=== PATIENT | male | born 1945 | race Caucasian/White ===

== ENCOUNTER 2023-09-06 19:20 | Inpatient (IN) | payer OTHER, SELFPAY ==
[2023-09-06] VITALS (11 sets, daily range): BP systolic 87–139; BP diastolic 46–80; BMI 19.3; BMI 18.5
[2023-09-06 15:00] LABS: Urine Albumin 2+ (Neg - Trace); Urine Bilirubin Negative (Negative); Urine Character Slightly Cloudy (Clear); Urine Glucose Negative (Negative); Urine Ketone Negative (Negative); Urine Leukocyte 2+ (Negative); Urine Nitrite Negative (Negative); Urine Occult Blood 4+ (Negative); Urine Specific Gravity 1.025 (<1.030); Urine Urobilinogen Negative (Neg - 1+)
[2023-09-06 15:01] LABS: Urine Color Yellow
[2023-09-06 15:03] LABS: % Basophils 0.3 % (0-2); % Eosinophils 0.2 % (0-6); % Immature Granulocytes 0.6 % (0-0.5); % Lymphocytes 2.6 % (20.5-51.1); % Monocytes 6.6 % (1.7-9.3); % Neutrophils 89.7 % (42.2-75.2); Absolute Basophils 0.1 10^3/uL (0-0.2); Absolute Immature Granulocytes 0.2 10^3/uL (0-0.05); Absolute Lymphocytes 0.7 10^3/uL (1.2-3.4); Absolute Monocytes 1.6 10^3/uL (0.1-0.6); Absolute Neutrophils 22.2 10^3/uL (1.4-6.5); Hematocrit 31.6 % (39.0-52.0); Hemoglobin 10.3 g/dL (13.0-18.0); Mean Corp Hgb Conc. 32.6 g/dL (33.0-37.0); Mean Corpuscular Hgb 22.8 pg (27.0-31.0); Mean Corpuscular Volume 70.1 fL (80.0-94.0); Mean Platelet Volume 10.1 fL (7.4-10.4); Nucleated Red Blood Cells % 0 % (-); Platelet Count 270 10^3/uL (130-400); Red Blood Cell Count 4.51 10^6/uL (4.70-6.10); Red Cell Dist. Width 18.3 % (11.5-14.5); White Blood Cell Count 24.7 10^3/uL (4.8-10.8)
[2023-09-06 15:13] LABS: Lactic Acid 1.5 mmol/L (0.7-2.0)
[2023-09-06 15:15] LABS: ALT (SGPT) 12 U/L (0-50); AST (SGOT) 19 U/L (17-59); Albumin 3.8 g/dl (3.5-5.0); Alkaline Phosphatase 83 U/L (38-126); Blood Urea Nitrogen 24 mg/dl (9-20); Calcium 8.7 mg/dl (8.4-10.2); Carbon Dioxide 29 mmol/L (22-30); Chloride 98 mmol/L (98-107); Estimated Creatinine Clearance 37 ml/min; Glucose 95 mg/dl (70-99); Potassium 4.4 mmol/L (3.5-5.1); Sodium 137 mmol/L (135-145); Total Bilirubin 0.8 mg/dl (0.2-1.3); eGFR 55.53
[2023-09-06 15:21] LABS: Urine White Cell >100 /HPF (0-5)
[2023-09-06 15:22] LABS: Urine Bacteria Moderate (Negative)
[2023-09-06] MEDS: TYLENOL 1000 MG PO (15:29)
--- NOTE | 2023-09-06 15:29 | ED.GENMED ---
History of Present Illness
General
Chief Complaint: Breathing Problem
Source: patient
Exam Limitations: none
Time Seen by Provider: 09/06/23 15:21
History of Present Illness
History of Present Illness:
See MDM
Past History
Past History
ED Past Medical History: Arrthythmia (Atrial fibrillation), CAD, CHF, COPD and ID
ED Past Surgical History: Cardiac (ICD implantation), Orthopedic (Cyst on left hand) and Other (Hernia repair)
Patient has exhibited threatening behavior?: No
PSI?: No
Social History
Tobacco: Former smoker
Alcohol: Occasional
Drug: None
Personal:
Living: with family
Employment: Retired
Family History
Family History: Other (Noncontributory )
Phy Exam
Physical Exam
Physical Exam:
See MDM
Scores
Heart Failure Risk
Heart Failure Risk Score: Not Applicable
Course
Orders/Labs/Results
Orders:
Orders
09/06/23 14:36
Electrocardiogram (*1) Urgent
Reason for Study: Other
Other Reason for Exam: Possible Sepsis
Cardiac Monitoring- Treatment ONCE
EKG- Treatment ONCE
IV Insert/Care/Rem.- Treatment PRN
O2 Therapy [RESP] Urgent
Titrate/Wean O2 to maintain O2 sat greater than (%): 93
Special Instructions: TO MAINTAIN CONTINUOUS O2 SATS > OR = 93%
Pulse Ox/cont/shift [RESP] Urgent
Quantity: 1
Special Instructions: CONTINUOUS
09/06/23 14:45
Complete Blood Count/With Diff Urgent
Comprehensive Metabolic Panel Urgent
Lactic Acid Q4H
Comment: ON ICE, CANCEL 2ND ORDER IF FIRST LACTIC ACID LEVEL <2
Urinalysis Reflex To Culture Urgent
Date Specimen was Collected: 09/06/23
Time Specimen was Collected: 14:36
Urine Microscopic Reflex Cult Urgent
Blood Culture Q30M
JAMARI Source: Blood/Venous
Specimen Description:
Comment: FROM 2 SEPARATE SITES
Urine Culture Urgent
JAMARI Source: U
Specimen Description:
Date Specimen was Collected: 09/06/23
Time Specimen was Collected: 14:36
09/06/23 14:50
Blood Culture Q30M
JAMARI Source: Blood/Venous
Specimen Description:
Comment: FROM 2 SEPARATE SITES
09/06/23 15:26
Acetaminophen [Tylenol] 1,000 mg PO NOW STA
09/06/23 15:28
CR Chest - 2 Views Urgent
Comment:
Reason For Exam: ssob, cough, fever
09/06/23 15:31
0.9% Sodium Chloride 1000 ml [Nss] 1,000 ml IV BOLUS
09/06/23 17:40
Piperacillin/Tazo 3.375 Gram [Zosyn] 3.375 gram in 50 ml IV NOW
Vancomycin [Vancocin] 1,250 mg 0.9% Sodium Chloride 250 ml [Nss] 250 ml IV NOW
Abnormal Lab Results
09/06/23
14:45
WBC 24.7 H 10^3/uL
(4.8-10.8)
RBC 4.51 L 10^6/uL
(4.70-6.10)
Hgb 10.3 L g/dL
(13.0-18.0)
Hct 31.6 L %
(39.0-52.0)
MCV 70.1 L fL
(80.0-94.0)
MCH 22.8 L pg
(27.0-31.0)
MCHC 32.6 L g/dL
(33.0-37.0)
RDW 18.3 H %
(11.5-14.5)
Abs Immat Gran (auto) 0.2 H 10^3/uL
(0-0.05)
Absolute Neuts (auto) 22.2 H 10^3/uL
(1.4-6.5)
Absolute Lymphs (auto) 0.7 L 10^3/uL
(1.2-3.4)
Absolute Monos (auto) 1.6 H 10^3/uL
(0.1-0.6)
Immature Gran % 0.6 H %
(0-0.5)
Neutrophils % 89.7 H %
(42.2-75.2)
Lymphocytes % 2.6 L %
(20.5-51.1)
BUN 24 H mg/dl
(9-20)
Ur Occult Blood Reflex 4+ A
(Negative)
Leukocyte Esterase Rfl 2+ A
(Negative)
Urine RBC 3-6 A /HPF
(0-2)
Urine WBC (Reflex) >100 A /HPF
(0-5)
Urine Bacteria (Reflex) Moderate A
(Negative)
Urine Albumin (Reflex) 2+ A
(Neg - Trace)
09/06/23 14:45
09/06/23 14:45
Vital Signs
Initial and Last Documented VS:
Initial Vital Signs
Temp Pulse Resp BP Pulse Ox
100.2 F 92 18 114/46 98
09/06/23 14:42 09/06/23 14:42 09/06/23 14:42 09/06/23 14:42 09/06/23 14:42
Last Documented Vital Signs
Temp Pulse Resp BP Pulse Ox
100.2 F 87 29 97/55 96
09/06/23 14:42 09/06/23 17:15 09/06/23 17:15 09/06/23 17:04 09/06/23 17:15
MDM/Problems Addressed
Differential Diagnosis Includes:
HPI and MDM Narrative:
78-year-old male presenting with shortness of breath and cough. Patient found to have low-grade fevers. Is not certain how long the symptoms have been going on. Patient is confused when it started. EMS stating that he was hypoxic and required
supplemental oxygen. EMS stating that he was recently diagnosed with aspiration pneumonia. Patient unsure if he has been taking antibiotics or not
On exam, pulse ox ranging from 90-94 on room air. Patient complains of if he cannot sputum production since this morning. Patient is febrile. Will give Tylenol and obtain chest x-ray. Blood work is returning showing significant leukocytosis but
lactic acid within normal limits
Physical exam
General: Well appearing and non-toxic
HEENT: protecting airway. Mildly dry mucous membranes
Neck: supple
CV: No evidence of cyanosis
Resp: No accessory muscle use. Rhonchorous breath sounds
Abd: Non-distended
Extremities: No deformities. No leg edema
Neuro: alert
Psych: Normal affect
Skin: Warm
Problems Addressed including Acute and Chronic Conditions affecting care:
1. Shortness of breath, cough, fever
Acuity: acute
Prognosis: stable
Details: Likely in setting of pneumonia. Patient has significant leukocytosis. Chest x-ray pending
2. Dehydration
Acuity: acute
Prognosis: stable
Details: Will start IV fluids
Updates
3:52 [employer] stating that defibrillator is at End of Service
Chest x-ray concerning for perihilar pneumonia.
Differential Diagnosis (but not limited to): Pneumonia, aspiration, pneumonitis, UTI
Testing considered: COVID testing
Drug therapy (if applicable): OTC meds, please see d/c instruction regarding Rx drugs
Amount and/or Complexity of Data Reviewed
Clinical info obtained from: Patient
External data reviewed: N/A
Labs I independently reviewed (but not limited to): Leukocytosis
Radiology: X-ray independently reviewed: Chest x-ray concerning for perihilar pneumonia
Pulse Ox: not hypoxic
EKG independently reviewed: N/A
Insurance Checker: Sinus rhythm
Critical Care: N/A
Risk of Complication:
Social Determinants of health: Good social support
Discussed with other providers: Hospitalist
Escalation of Care includes Admit/Obs: Given leukocytosis, fever, pneumonia and UTI, will admit. Patient will have to have his defibrillator 'end of service' figured out as well
Occasional wrong word or 'sound a like' substitutions may have occurred due to the inherent limitations of voice recognition software. Read the chart carefully and recognize, using context, where substitutions have occurred.
*Critical Care Note
Total Time (30-74mins, 75-104mins- exclusive of procedures): Not Applicable
ED Attending Note
-
Portions of this chart may have been created with voice recognition software.� Occasional wrong word or��sound alike� substitutions may have occurred due to the inherent limitations of voice recognition software.
Discharge Plan
Departure
Patient Disposition: Admit
Date of Disposition: 09/06/23
Time of Disposition: 17:48
Admit to: Telemetry
Presentation/result/management discussed w/ accepting MD/DO: Hospitalist
Discharge Problem:
Acute UTI, PNA (pneumonia)
Prescriptions:
No Action
pravastatin 80 MG tablet
80 mg PO QPM
lisinopril 5 MG tablet
5 mg PO DAILY
furosemide 40 mg Tablet
20 mg PO DAILY
Rx Instructions:
20mg once daily
Trelegy Ellipta 100-62.5-25 mcg Blister With Device
1 inh INHALATION R DAILY
apixaban 5 mg Tablet
5 mg PO BID
carvedilol 6.25 mg tablet
6.25 mg PO BID
Visbiome 112.5 billion cell Capsule
1 cap PO BID
bisacodyl [Dulcolax (bisacodyl)] 10 mg Suppository
10 mg AR PRN PRN (Reason: constipation )
Rx Instructions:
if no BM in 8 hr. after milk of mag
Fleet Enema suppository
See Rx Instructions .ROUTE .COMPLEX PRN (Reason: constipation )
Rx Instructions:
if no BM in 8 hr, after suppository
ipratropium-albuterol 0.5 mg-3 mg(2.5 mg base)/3 mL Solution For Nebulization
3 ml inhalation R QID PRN (Reason: shortness of breath) Qty: 90 0RF
dextromethorphan-guaifenesin 10-100 mg/5 mL Syrup
10 ml PO Q4HPRN PRN (Reason: Cough) Qty: 237 0RF
tramadol 50 mg Tablet
50 mg PO Q6HPRN PRN (Reason: moderate to severe pain) Qty: 14 0RF
tamsulosin 0.4 mg Capsule
0.4 mg PO DAILY Qty: 30 0RF
diazepam [Valium] 5 mg tablet
5 mg PO DAILY PRN (Reason: anxiety) Qty: 5 0RF
pantoprazole 40 mg Tablet,Delayed Release (Dr/Ec)
40 mg PO DAILY Qty: 30 0RF
lidocaine 4 % Adhesive Patch,Medicated
2 patch topical DAILY Qty: 60 0RF
Rx Instructions:
apply to low back
acetaminophen [Pain Relief ES (acetaminophen)] 500 mg Tablet
1,000 mg PO TID Qty: 100 0RF
gabapentin 100 mg Capsule
200 mg PO TID Qty: 90 0RF
albuterol sulfate 90 mcg/actuation HFA aerosol inhaler
2 puff INHALATION R Q4 PRN (Reason: breathing issues) Qty: 0 0RF
Rx Instructions:
2.5mg/3ml 0.083% three times a day
Referrals:
Grayson Lyons MD [Family Provider] -
Interventions
Interventions:
*Risk Screen - Suicide Last Done: 09/06/23 15:02
*General Assessment Last Done: 09/06/23 14:41
*Neglect/Abuse Screening Last Done: 09/06/23 15:02
ED- Fall Risk Assessment Last Done: 09/06/23 14:41
*ED COVID-19 Vaccine History Last Done: 09/06/23 14:41
ED- Cardiac Assessment Last Done: 09/06/23 15:02
ED- Pulmonary Assessment Last Done: 09/06/23 15:02
Discharge Date and Time
Print Language: NEPALESE
[2023-09-06] MEDS: NSS 1000 IV ×2 (15:34→20:26)
[2023-09-06] MEDS: ZOSYN 50 IV (18:12)
--- NOTE | 2023-09-06 18:24 | HPS.HSE ---
Family Physician
-
Family Physician: Grayson Lyons
Chief Complaint
-
Vomiting
History of Present Illness
Patient is an 78-year-old male past medical history of COPD, CHF and permanent atrial fibrillation s/p pacemaker who presents with projectile vomiting. Additional history is obtained from patient's daughter at the bedside as well as patient's
via phone. Patient has been complaining of increased burning sensation around his Hurd catheter for the last week. He notes catheter was changed on August 03, and then again this morning prior to onset of symptoms. Patient developed significant
'projectile vomiting' today. EMS was called due to severity of symptoms, and upon arrival patient's blood pressure and oxygen level were noted to be low. During my evaluation blood pressure has improved following IVFs, and pulse ox is 95% on room
air.
Medical History
Past Medical History
Past Medical History: Reports Other
Additional Past Medical History:
Complete Heart Block
Chronic HFrEF
Coronary Artery Disease s/p Stent
Ischemic Cardiomyopathy s/p AICD
Essential Hypertension
Hyperlipidemia
COPD
Past Surgical History: Reports Other
Additional Past Surgical History:
Hernia Repair
Social History
Tobacco: Former Smoker (Quit at least years 10 ago)
Alcohol: Occasional
Family History
Family History: Not pertinent
Allergies / Home Medications
Allergies reflects when Allergies were last updated in [employer].
Home Medications with original date entered in [employer]
Allergy/Medication List:
Allergies
Allergy/AdvReac Type Severity Reaction Status Date / Time
No Known Drug Allergies Allergy Unknown Verified 11/21/21 09:37
Home Medications
furosemide 40 mg tablet 20 mg PO DAILY Fluid retention/Swelling 02/06/22
ipratropium 0.5 mg-albuterol 3 mg (2.5 mg base)/3 mL nebulization soln 3 ml inhalation R QID PRN shortness of breath #90 mL 07/17/22
tamsulosin 0.4 mg capsule 0.4 mg PO DAILY urinary retention #30 caps 07/18/22
tramadol 50 mg tablet 50 mg PO Q6HPRN PRN moderate to severe pain #14 tabs 07/18/22
acetaminophen 500 mg tablet (Pain Relief Extra Strength (acetaminophen)) 500 mg PO Q8HPRN PRN Pain 09/06/23
benzonatate 100 mg capsule 100 mg PO BID 09/06/23
docusate sodium 100 mg capsule (Colace) 100 mg PO DAILY 09/06/23
melatonin 5 mg tablet 5 mg PO HS PRN sleep 09/06/23
oxybutynin chloride 10 mg tablet,extended release 24 hr 10 mg PO DAILY 09/06/23
sennosides 8.6 mg tablet (senna) 17.2 mg PO BID 09/06/23
Review of Systems
-
A 12 point ROS was completed and negative except as noted: Yes
Constitutional: Reports Fever
Respiratory: Denies Cough or Trouble Breathing
Cardiac: Denies Chest Pain or Syncope
Abdomen/GI: Reports Vomiting; Denies Abdominal Pain
Physical Exam
Vital Signs
Vital Signs
Temp Pulse Resp BP Pulse Ox
100.2 F 87 29 97/55 96
09/06/23 14:42 09/06/23 17:15 09/06/23 17:15 09/06/23 17:04 09/06/23 17:15
Physical Exam
General: Comfortable and Conversant
HEENT: Anicteric, Moist mucous membranes and Other (Poor dentition)
Respiratory: Clear and Non Labored Respirations
Cardiac: S1/S2 and Regular Rhythm
GI: Soft, Non Tender, Distended (Slightly) and Other (Slightly hyperactive bowel sounds)
Genito-urinary: Hurd
Musculoskeletal: No Clubbing, No Cyanosis and No Edema
Skin: Warm and Dry
Neuro: Awake, Alert and Nonfocal/grossly intact
Psych: Calm
Laboratory Results
-
09/06/23 14:45
09/06/23 14:45
Laboratory Results
Lactic Acid Cancelled 09/06/23 18:45
Total Bilirubin 0.8 mg/dl (0.2-1.3) 09/06/23 14:45
AST 19 U/L (17-59) 09/06/23 14:45
ALT 12 U/L (0-50) 09/06/23 14:45
Alkaline Phosphatase 83 U/L (38-126) 09/06/23 14:45
Impression/Plan
-
Sepsis secondary to Catheter Associated Urinary Tract Infection
-Continue empiric ceftriaxone
-Await urine and blood cultures
Projectile Vomiting
-Check Abdomen X-Ray
Ischemic Cardiomyopathy/Complete Heart Block s/p BiV ICD/Pacemaker
-Interrogation revealed device to be at 'End of Service'
-Consult Cardiology to discuss possible generator change
Chronic HFpEF
-Hold Lasix as BP was low upon presentation
Urinary Retention with Chronic Hurd
-Hurd exchanged on September 05
-Continue tamsulosin and oxybutynin
COPD, no acute exacerbation
-Continue Duoneb PRN
DVT proph: SCDs
Code Status: DNR
[2023-09-06 18:41] LABS: COVID-19 Antigen Negative (Negative)
--- NOTE | 2023-09-06 19:47 | W.PN.UPDATE ---
Update Note
Progress Note Update
Patient seen/examined and discussed with CRISTINA Cowart, and I agree with her note.
Gen-AAOx3, NAD
HEENT-NC, AT, anicteric, clear MM
Neck-supple
CV-reg, no M
Lungs-clear B/L
Abd-distended, tympanitic, not tender
Ext-no edema
Ileus vs. SBO - keep NPO, IVF, antiememtics. Admit to tele. Consult general surgery. Abdominal x-ray noted. Projective vomiting this am prior to admission as per family.
Sepsis - differential includes UTI vs. other. Check blood and urine cultures, IV ceftriaxone for now. IVFs. This would be CAUTI if UTI ruled in.
Chronic urinary retention/chronic roldan catheter - his catheter was last changed this am according to family.
BiV-ICD - interrogated by ED, battery life depleted. Ask Cardiology to comment on device change.
Chronic HFpEF - stable.
COPD without exacerbation
Essential HTN - currently hypotensive, IVF as above.
Hyperlipidemia
Chronic anemia - microcytic. Will need follow up with PCP. Unclear etiology.
Functional paraparesis - bedbound.
DNR
Updated daughter at bedside.
[2023-09-06] MEDS: DITROPAN 5 MG PO (22:22)
[2023-09-06] MEDS: MELATONIN 5 MG PO (22:22)
[2023-09-06] MEDS: TYLENOL 650 MG PO (22:22)
[2023-09-06] MEDS: DUONEB 3 ML INH (22:34)
[2023-09-06] MEDS: VANCOCIN 275 MG IV (22:52)
[2023-09-07 00:44] VITALS: BMI 18.5
[2023-09-07] MEDS: ROCEPHIN 1000 MG IV (01:01)
[2023-09-07] MEDS: STERILE WATER FOR INJECTION 10 ML IV (01:01)
[2023-09-07 03:05] VITALS: BP 109/59
[2023-09-07 06:00] VITALS: BMI 18.8
[2023-09-07 07:15] VITALS: BP 113/75
[2023-09-07] MEDS: DITROPAN 5 MG PO ×2 (07:33→20:43)
[2023-09-07] MEDS: FLOMAX 0.400000000000000022 MG PO (07:33)
[2023-09-07 08:23] LABS: Hematocrit 27.9 % (39.0-52.0); Hemoglobin 8.9 g/dL (13.0-18.0); Mean Corp Hgb Conc. 31.9 g/dL (33.0-37.0); Mean Corpuscular Hgb 22.7 pg (27.0-31.0); Mean Corpuscular Volume 71.2 fL (80.0-94.0); Mean Platelet Volume 10.5 fL (7.4-10.4); Platelet Count 239 10^3/uL (130-400); Red Blood Cell Count 3.92 10^6/uL (4.70-6.10); Red Cell Dist. Width 18.1 % (11.5-14.5); White Blood Cell Count 16.1 10^3/uL (4.8-10.8)
[2023-09-07 08:51] LABS: Blood Urea Nitrogen 20 mg/dl (9-20); Calcium 8.1 mg/dl (8.4-10.2); Carbon Dioxide 25 mmol/L (22-30); Chloride 103 mmol/L (98-107); Estimated Creatinine Clearance 39 ml/min; Glucose 82 mg/dl (70-99); Potassium 4.1 mmol/L (3.5-5.1); Sodium 138 mmol/L (135-145); eGFR > 60.00
--- NOTE | 2023-09-07 09:20 | W.PN.HOSP.TC ---
Today's Communication/Plan
-
N.p.o., IV fluids
General surgery consult
Cardiology consult
Continue antibiotics
Await cultures
Assessment / Plan
Assessment / Plan
Gen-AAOx3, NAD
HEENT-NC, AT, anicteric, clear oral mm
Neck-supple
CV-reg, no M, +S1/S2
Lungs-clear B/L
Abd-soft, nontender, mildly distended and tympanitic
Ext-no edema
Musculoskeletal-no cyanosis, clubbing
Skin-warm and dry
Neuro-grossly non-focal
Psych-calm, cooperative
Ileus vs. SBO - keep NPO, IVF, antiememtics. Consult general surgery. Abdominal x-ray noted. No further nausea or vomiting in the hospital.
Sepsis - differential includes UTI vs. other. Check blood and urine cultures, IV ceftriaxone for now. IVFs. This would be CAUTI if UTI ruled in. WBCs trending down, afebrile overnight.
Chronic urinary retention/chronic roldan catheter - his catheter was last changed morning of admission.
BiV-ICD - interrogated by ED, battery life depleted. Ask Cardiology to comment on device change.
Chronic HFpEF - stable.
COPD without exacerbation
Essential HTN -stable, hypotension resolved with IV fluids.
Hyperlipidemia
Chronic anemia - microcytic. Will need follow up with PCP. Unclear etiology.
Functional paraparesis - bedbound.
DNR
Anticipated Discharge: > 48 hours
Subjective/Interval History
-
Date of Service: September 07, 2023
Patient seen and examined. No new complaints.
Objective Data
-
Labs:
Laboratory Results
09/07/23
07:29
WBC 16.1 H
Hgb 8.9 L
Hct 27.9 L
Plt Count 239
Sodium 138
Potassium 4.1
Chloride 103
Carbon Dioxide 25
BUN 20
Creatinine 1.2
Glucose 82
Calcium 8.1 L
Vital Signs:
Vital Signs
Temp Pulse Resp BP Pulse Ox
98.6 F 96 20 113/75 99
09/07/23 07:15 09/07/23 07:15 09/07/23 07:15 09/07/23 07:15 09/07/23 07:15
I&O
09/06/23 09/07/23 09/08/23
06:59 06:59 06:59
Intake Total 1235 / 1235
Output Total 550 / 550
Balance 685 / 685
Review of Systems
-
History Source: Patient
All other systems: Reviewed and negative
--- NOTE | 2023-09-07 09:35 | PTCARENOTE ---
pt [place] states no pain. hearing aid in left ear. pt asking for breakfast. nc4l. breath sounds diminished at bases. roldan in place.
--- NOTE | 2023-09-07 10:42 | CON.GS ---
Medical History
-
Chief Complaint: Dysuria
History of Present Illness:
Patient is an 78 yo M with a PMH of HTN, HLD, CAD s/p PCI with stent, ischemic cardiomyopathy s/p AICD, CHF, COPD, and s/p LEFT open inguinal hernia repair with mesh. He has a chronic indwelling Hurd and has been admitted for issues with dysuria
as well as a concern for a UTI. During the course of his workup he endorses nausea and vomiting. Denies any significant abdominal pain. He has had no further episodes since admission to the hospital. He reports passing flatus, but no BM. Workup
includes an abdominal x-ray which demonstrates small bowel as well as a large bowel dilation with air. No evidence of free air. No CT scan performed.
Past Medical History
Past Medical History: Arrhythmias (Heart block), CAD, CHF, COPD, HTN and Hypercholesterolemia
Past Surgical History: Hernia Repair (Open LEFT inguinal)
Social History
Tobacco: Former Smoker
Alcohol: Occasional
Drug: None
Personal:
Living: With Family
Family History
Family History: Reviewed & Not Pertinent
Allergies / Home Medications
Allergy/AdvReac Type Severity Reaction Status Date / Time
No Known Drug Allergies Allergy Unknown Verified 11/21/21 09:37
�Medication �Instructions �Recorded �Confirmed �Type
furosemide 40 mg tablet 20 mg PO DAILY Fluid 02/06/22 09/06/23 History
retention/Swelling
ipratropium 0.5 mg-albuterol 3 mg 3 ml inhalation R QID PRN 07/17/22 09/06/23 Rx
(2.5 mg base)/3 mL nebulization shortness of breath #90 mL
soln
tamsulosin 0.4 mg capsule 0.4 mg PO DAILY urinary retention 07/18/22 09/06/23 Rx
#30 caps
tramadol 50 mg tablet 50 mg PO Q6HPRN PRN moderate to 07/18/22 09/06/23 Rx
severe pain #14 tabs
acetaminophen 500 mg tablet (Pain 500 mg PO Q8HPRN PRN Pain 09/06/23 09/06/23 History
Relief Extra Strength
(acetaminophen))
benzonatate 100 mg capsule 100 mg PO BID 09/06/23 09/06/23 History
docusate sodium 100 mg capsule 100 mg PO DAILY 09/06/23 09/06/23 History
(Colace)
melatonin 5 mg tablet 5 mg PO HS PRN sleep 09/06/23 09/06/23 History
oxybutynin chloride 10 mg 10 mg PO DAILY 09/06/23 09/06/23 History
tablet,extended release 24 hr
sennosides 8.6 mg tablet (senna) 17.2 mg PO BID 09/06/23 09/06/23 History
Review of Systems
-
A 10 point review of systems was completed, and was negative except as per HPI.
Physical Exam
Vital Signs
Temp Pulse Resp BP Pulse Ox
98.6 F 96 20 113/75 99
09/07/23 07:15 09/07/23 07:15 09/07/23 07:15 09/07/23 07:15 09/07/23 07:15
09/06/23 09/07/23 09/08/23
06:59 06:59 06:59
Actual Weight 55.934 kg
Body Mass Index (BMI) 18.8
Lab Results
09/07/23 07:29
09/07/23 07:29
WBC 16.1 10^3/uL (4.8-10.8) H 09/07/23 07:29
Hgb 8.9 g/dL (13.0-18.0) L 09/07/23 07:29
Hct 27.9 % (39.0-52.0) L 09/07/23 07:29
Plt Count 239 10^3/uL (130-400) 09/07/23 07:29
Abs Immat Gran (auto) 0.2 10^3/uL (0-0.05) H 09/06/23 14:45
Neutrophils % 89.7 % (42.2-75.2) H 09/06/23 14:45
Physical Exam
General: Well Developed, Well Nourished and No Apparent Distress
HEENT: Normocephalic
Respiratory: Non Labored Respirations and Other (Supplemental O2)
Cardiac: Regular Rhythm
GI: Soft, Non Tender, Distended (Mild tympany) and Other (Non-peritoneal)
Musculoskeletal: No Edema
Skin: Warm and Dry
Neuro: Nonfocal/Grossly Intact
Data Reviewed
-
Radiology: Image Personally Visualized and interpreted and Report Reviewed by me
Labs: Labs Reviewed by me
Assessment / Plan
-
Patient is a 78 yo M p/w ileus versus bowel obstruction (possibly large given dilation of colon as visualized on x-ray).
No plans or indication for urgent surgical intervention. Patient is clinically stable, afebrile, no evidence of free air on x-ray. Plan for CT abdomen pelvis with oral and IV contrast today for completion of workup. Diet and further
recommendations pending this imaging.
-- CT abdomen/Pelvis with PO and IV contrast
-- NPO, IVF, NGT for nausea, emesis, or inability to tolerate contrast
-- No plans for surgery at this time
[2023-09-07 11:10] VITALS: BP 104/87
[2023-09-07] MEDS: OMNIPAQUE 50 ML PO (11:13)
--- NOTE | 2023-09-07 11:19 | CON.CAR ---
Addendum entered and electronically signed by Taryn Nuñez MD 09/07/23 13:28:
I saw and examined the patient.
The PICU NURSE's note was reviewed and I agree with the note.
Comment: 6-year-old gentleman with a past medical history of heart failure with mildly reduced EF, BiV ICD, prior VT and shocks, chronic atrial fibrillation, presented for evaluation for vomiting. Was found to have an ileus versus SBO. In the ED
for unclear reasons device was interrogated. It is now at end-of-life. We are asked to comment on whether or not he should have a generator change. It turns out he had been on hospice last year for failure to thrive, pneumonia and hypotension
according to his . He outlived hospice and is now doing better. On exam, he does not have a lot of complaints. He is a poor historian. He appears cachectic but is alert and oriented. Regular rate and rhythm, lungs are clear to auscultation
bilaterally abdomen is tender with high-pitched bowel sounds. Device interrogation shows VT therapies are off, he is pacing 92% of the time from the ventricle. I discussed the indication for a new battery in a patient with heart failure. He
already outlived a hospice diagnosis. Currently, he would not be a candidate with an SBO and possible UTI. Additionally we would need to establish his mortality greater than 1 year. It seems to me, that this may be the case. I discussed frankly
with the that we could replace the battery to help ensure ongoing [employer]. Would not recommend activating his ICD lead as his wishes are to be DNR. She would like to discuss this with her family. I explained that this is not an acute issue. We
would be happy to revisit this issue after this hospitalization. Please let us know when he is nearing discharge so we can follow-up.
Original Note:
Consultation
Consultation Request
Date/Time Consultation Requested: 09/06/2023 20:00
Date/Time Consultation Performed: 09/07/2023 10:00
Requesting Provider: Bianca Cowart PA-C
Performing Provider: DEEP Gaspar for Dr. Nuñez
Reason for Consultation: Device at EOL
Medical History
-
Chief Complaint: Vomiting
History of Present Illness:
Mr. Ray is an 78-year-old male (formerly known to Dr. Mcmullen), with permanent atrial fibrillation (no longer on apixaban), CAD (PCI proximal LCx 2009), HTN, HLD, LBBB, Medtronic BiV ICD, ICM 45%, HFmrEF and NIDDM, who presents to the ER with
c/o vomiting. He was found to have an ileus versus bowel obstruction. His Medtronic device was interrogated by the ER and was found to be at end-of-life. Cardiology was consulted for device management.
The patient and his had a lengthy discussion with Dr. Mcmullen in August, after he received ICD therapy x 21. He was transitioned to hospice at that time. The patient and his report he is no longer on hospice.
Past Medical History
Past Medical History: Arrhythmias (permanent Afib), CAD (BMS to proximal circumflex stenosis 04/16/2009), CHF (HFmrEF), COPD, HTN, Hypercholesterolemia, NIDDM and Other (LBBB, CHB pacer dependent)
Past Surgical History: Cardiac (Medtronic BiV ICD)
Social History
Tobacco: Former Smoker
Alcohol: Occasional (1 drink a month)
Drug: None
Personal:
Living: With Family
Employment: Retired
Family History
Family History: Reviewed & Not Pertinent
Allergies / Home Medications
Allergy/AdvReac Type Severity Reaction Status Date / Time
No Known Drug Allergies Allergy Unknown Verified 11/21/21 09:37
�Medication �Instructions �Recorded �Confirmed �Type
furosemide 40 mg tablet 20 mg PO DAILY Fluid 02/06/22 09/06/23 History
retention/Swelling
ipratropium 0.5 mg-albuterol 3 mg 3 ml inhalation R QID PRN 07/17/22 09/06/23 Rx
(2.5 mg base)/3 mL nebulization shortness of breath #90 mL
soln
tamsulosin 0.4 mg capsule 0.4 mg PO DAILY urinary retention 07/18/22 09/06/23 Rx
#30 caps
tramadol 50 mg tablet 50 mg PO Q6HPRN PRN moderate to 07/18/22 09/06/23 Rx
severe pain #14 tabs
acetaminophen 500 mg tablet (Pain 500 mg PO Q8HPRN PRN Pain 09/06/23 09/06/23 History
Relief Extra Strength
(acetaminophen))
benzonatate 100 mg capsule 100 mg PO BID 09/06/23 09/06/23 History
docusate sodium 100 mg capsule 100 mg PO DAILY 09/06/23 09/06/23 History
(Colace)
melatonin 5 mg tablet 5 mg PO HS PRN sleep 09/06/23 09/06/23 History
oxybutynin chloride 10 mg 10 mg PO DAILY 09/06/23 09/06/23 History
tablet,extended release 24 hr
sennosides 8.6 mg tablet (senna) 17.2 mg PO BID 09/06/23 09/06/23 History
Review of Systems
-
History Source: Patient
All other systems: Negative unless noted
Constitutional: Fatigue
EENT: No Symptoms
Respiratory: No Symptoms
Cardiac: No Symptoms
Abdomen/GI: Nausea and Vomiting
: No Symptoms
Musculoskeletal: No Symptoms
Skin: No Symptoms
Neurological: No Symptoms
Endocrine: No Symptoms
Hematologic/Lymphatic: No Symptoms
Physical Exam
Vital Signs
Temp Pulse Resp BP Pulse Ox
98.6 F 96 20 113/75 99
09/07/23 07:15 09/07/23 07:15 09/07/23 07:15 09/07/23 07:15 09/07/23 07:15
Lab Results
09/07/23 07:29
09/07/23 07:29
Physical Exam
General: Well Developed, Well Nourished, No Apparent Distress and Comfortable
HEENT: Normocephalic, Anicteric and Moist Mucous Membranes
Respiratory: Clear and Non Labored Respirations
Cardiac: S1/S2 and Regular Rhythm
Breast: Deferred by me
GI: Soft, Non Tender and Non Distended
Rectal: Deferred by Provider
Genito-urinary: No Costovertebral Tender
Musculoskeletal: No Clubbing, No Cyanosis and No Edema
Skin: Warm and Dry
Neuro: AO x 3
Psych: Calm
Impression / Plan
-
BiV ICD at EOL
-Telephone encounter from 08/2022 reflects the patient and his denied antiarrhythmic therapy and further management and was transitioning to hospice care
-Patient is no longer on hospice but wishes to remain a DO NOT RESUSCITATE
-The patient and his are going back and forth whether or not they would want the patient to be shocked for arrhythmia, VT therapy is currently off
Vomiting with ileus versus bowel obstruction, CT abdomen pelvis pending, general surgery following
Ischemic cardiomyopathy
Heart failure with mildly reduced EF, LVEF 40-45% (2021)
-He does not appear volume overloaded, follow daily weights with IV fluid
-Medical therapy has been limited in the past due to blood pressure
-Trend daily weight, I/O
-Heart failure education
Permanent atrial fibrillation, not on oral anticoagulation, consider resuming apixaban, he had a GI bleed that was evaluated by GI in the past
CAD, stable without chest pain, he should be on aspirin if he wants to continue off apixaban
Chronic indwelling Hurd catheter, leukocytosis with abnormal UA
COPD, chronic without exacerbation
Hypertension
Anemia, chronic
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
Data Reviewed
-
EKG: Report Reviewed by me (Atrial sensed ventricular paced rhythm, rate 91)
Radiology: Report Reviewed by me (Abdomen: Findings suggesting nonspecific ileus. Early/developing small bowel obstruction not definitely excluded; CXR: No acute cardiopulmonary process.)
Medical Tests (Nuc Med, Echo etc): Report Reviewed by me (Prior echocardiogram as above)
Labs: Labs Reviewed by me
Old Records: Reviewed
[2023-09-07] MEDS: 0.45%NACL 1000 IV (13:15)
[2023-09-07 15:00] VITALS: BP 126/61
--- NOTE | 2023-09-07 16:23 | CM ---
Patient seen at bedside. Patient lives with his in a 2 story home with 2 steps to enter. patient has been using his walker or cane in home. Patient has used [facility] and been at [facility] several times. Patient requested CM call to patient
, unable to reach at this time. Patient for PT/OT assessment to clarify discharge needs. Patient has been graduated from hospice per chart review. CM will try to reach patient to review discharge planning needs.
Plan; home with VN vs SNF pending further discussion with physician
[2023-09-07 19:10] VITALS: BP 130/66
[2023-09-07 23:05] VITALS: BP 108/58
[2023-09-08] MEDS: STERILE WATER FOR INJECTION 10 ML IV ×2 (00:31→23:28)
[2023-09-08] MEDS: ROCEPHIN 1000 MG IV ×2 (00:31→23:27)
[2023-09-08 03:05] VITALS: BP 93/40
[2023-09-08 06:00] VITALS: BMI 18.6
[2023-09-08] MEDS: 0.45%NACL 1000 IV (06:07)
[2023-09-08 07:00] VITALS: BP 114/97
[2023-09-08 07:33] LABS: % Basophils 0.5 % (0-2); % Eosinophils 2.2 % (0-6); % Immature Granulocytes 0.2 % (0-0.5); % Lymphocytes 6.7 % (20.5-51.1); % Monocytes 10.9 % (1.7-9.3); % Neutrophils 79.5 % (42.2-75.2); Absolute Basophils 0.1 10^3/uL (0-0.2); Absolute Eosinophils 0.3 10^3/uL (0-0.7); Absolute Lymphocytes 0.8 10^3/uL (1.2-3.4); Absolute Monocytes 1.3 10^3/uL (0.1-0.6); Absolute Neutrophils 9.2 10^3/uL (1.4-6.5); Hematocrit 27.5 % (39.0-52.0); Hemoglobin 8.4 g/dL (13.0-18.0); Mean Corp Hgb Conc. 30.5 g/dL (33.0-37.0); Mean Corpuscular Hgb 22.3 pg (27.0-31.0); Mean Corpuscular Volume 72.9 fL (80.0-94.0); Mean Platelet Volume 10.4 fL (7.4-10.4); Nucleated Red Blood Cells % 0 % (-); Platelet Count 296 10^3/uL (130-400); Red Blood Cell Count 3.77 10^6/uL (4.70-6.10); White Blood Cell Count 11.5 10^3/uL (4.8-10.8)
[2023-09-08] MEDS: DITROPAN 5 MG PO ×2 (08:20→20:41)
[2023-09-08] MEDS: FLOMAX 0.400000000000000022 MG PO (08:20)
--- NOTE | 2023-09-08 10:36 | W.PN.HOSP.TC ---
Addendum entered and electronically signed by Kirit Linn DO 09/08/23 14:17:
Patient is underweight.
Original Note:
Today's Communication/Plan
-
Advance diet as tolerated
Assessment / Plan
Assessment / Plan
Gen-AAOx3, NAD
HEENT-NC, AT, anicteric, clear oral mm
Neck-supple
CV-reg, no M, +S1/S2
Lungs-clear B/L
Abd-soft, nontender, improving distention.
Ext-no edema
Musculoskeletal-no cyanosis, clubbing
Skin-warm and dry
Neuro-grossly non-focal
Psych-calm, cooperative
Ileus -resolving. No obstruction noted on CT scan. Suspect ileus related to sepsis, UTI. Start diet and advance. Discussed with surgical service.
Sepsis -due to catheter associated UTI. Urine culture shows Providencia, blood cultures negative. Currently on IV ceftriaxone. White blood cell count coming down.
Chronic urinary retention/chronic roldan catheter - his catheter was last changed morning of admission.
BiV-ICD - interrogated by ED, battery life depleted. Ask Cardiology to comment on device change.
Chronic HFpEF - stable.
COPD without exacerbation
Essential HTN -stable, hypotension resolved with IV fluids.
Hyperlipidemia
Chronic anemia - microcytic. Will need follow up with PCP. Unclear etiology. Hemoglobin at baseline.
Functional paraparesis - bedbound.
DNR
Dispo -anticipate discharge tomorrow if he remains stable.
Anticipated Discharge: Within 24 hours
Subjective/Interval History
-
Date of Service: September 08, 2023
Patient seen and examined. Complaining of hunger.
Objective Data
-
Labs:
Laboratory Results
09/08/23
07:06
WBC 11.5 H
Hgb 8.4 L
Hct 27.5 L
Plt Count 296 D
Vital Signs:
Vital Signs
Temp Pulse Resp BP Pulse Ox
97.6 F 64 16 114/97 100
09/08/23 07:00 09/08/23 07:00 09/08/23 07:00 09/08/23 07:00 09/08/23 07:39
I&O
09/07/23 09/08/23 09/09/23
06:59 06:59 06:59
Intake Total 1235 / 1235 1090 / 1090 750 / 750
Output Total 550 / 550 1100 / 1100
Balance 685 / 685 -10 / -10 750 / 750
Review of Systems
-
History Source: Patient
All other systems: Reviewed and negative
[2023-09-08 11:15] VITALS: BP 101/56
--- NOTE | 2023-09-08 13:50 | PN.CDI ---
CDI
- -
CDI:
Physician Documentation Request
Admit Date: 09/06/23 19:20
Dear Doctor Kaveh,
Patient admitted with sepsis.
Please review the following and provide your response in the progress notes.
Clinical Indicators:
Height: 5' 8'
Weight: 122 lb 8 oz
BMI: 18.6
Please provide an associated diagnosis related to the abnormal BMI, such as:
Underweight
Cachectic
Anorexia
BMI is not significant
Other
BMI < or = to 19
Underweight
Weight Loss
Cachectic
Anorexia
Use of terms such as suspected, likely, concern for, or probable (associated with a specific diagnosis that is being evaluated, monitored, or treated as if it exists) are acceptable and can be coded in the inpatient setting, when documented at the
time of discharge.
Thank you,
Shalini ROCK,RN,CCDS
CDI Specialist
Available via tiger text
Please use your independent medical judgment in providing your response.
--- NOTE | 2023-09-08 14:16 | W.PN.GS2 ---
Today's Communication / Plan
-
ADAT
Assessment / Plan
-
78M with SBO vs ileus, resolving
AFVSS, passing flatus
CT negative for bowel obstruction
Plan:
ADAT to [facility]
All other care as per primary team
Pls call with ?s
Subjective Data
-
Date of Service: September 08, 2023
Denies n/v, abd pain improved, passing flatus
Objective Data
-
Intake and Output
09/07/23 09/08/23 09/09/23
06:59 06:59 06:59
Intake Total 1235 / 1235 1090 / 1090 750 / 750
Output Total 550 / 550 1100 / 1100
Balance 685 / 685 -10 / -10 750 / 750
Intake:
Oral fluids 480 / 480
IV fluids (Total) 960 / 960 610 / 610 750 / 750
IV piggybacks 275 / 275
Output:
Urine, Hurd 550 / 550 1100 / 1100
Vital Signs
Temp Pulse Resp BP Pulse Ox
97.4 F 56 14 101/56 100
09/08/23 11:15 09/08/23 11:15 09/08/23 11:15 09/08/23 11:15 09/08/23 12:01
Lab Results
09/08/23 07:06
09/07/23 07:29
Calcium 8.1 mg/dl (8.4-10.2) L 09/07/23 07:29
Total Bilirubin 0.8 mg/dl (0.2-1.3) 09/06/23 14:45
AST 19 U/L (17-59) 09/06/23 14:45
ALT 12 U/L (0-50) 09/06/23 14:45
Alkaline Phosphatase 83 U/L (38-126) 09/06/23 14:45
Total Protein 7.0 g/dl (6.3-8.2) 09/06/23 14:45
Albumin 3.8 g/dl (3.5-5.0) 09/06/23 14:45
Physical Exam
-
Gen: NAD
Abd: soft, nt, nd
--- NOTE | 2023-09-08 14:30 | CM ---
CM reviewed chart and ADC tomorrow
Conference call with dtr and pt's spouse/Marge
They reside in a split level home with ramp entrance (ramp located behind white gate by sinhala door)
Pt has a live-in caregiver and pt is ambulatory with use of a WW and assist
Caregiver provides assistance with personal care tasks
Pt is current with [facility] PT/OT as well as SN who changes his cath monthly
Family is not interested in SNF placement
Requesting [facility] on dc
Spouse also requesting transport be arranged on dc
Aware of associated costs for WC van vs BLS if pt without BLS medical necessity
Transport confirmed WC van able to assist into house via ramp as long as no steps
Referral sent to [facility] via [facility]
Discharge Disposition- home with [facility]
[2023-09-08 15:00] VITALS: BP 111/58
[2023-09-08 19:05] VITALS: BP 119/72
[2023-09-08 23:05] VITALS: BP 102/53
[2023-09-09] VITALS (7 sets, daily range): BP systolic 106–131; BP diastolic 56–71; PULSE 67–75; O2SAT 97–98; BMI 19.0
[2023-09-09] MEDS: DITROPAN 5 MG PO ×2 (07:28→19:30)
[2023-09-09] MEDS: FLOMAX 0.400000000000000022 MG PO (07:28)
[2023-09-09 07:37] LABS: % Basophils 0.3 % (0-2); % Eosinophils 2.8 % (0-6); % Immature Granulocytes 0.5 % (0-0.5); % Lymphocytes 8.4 % (20.5-51.1); % Monocytes 10.1 % (1.7-9.3); % Neutrophils 77.9 % (42.2-75.2); Absolute Eosinophils 0.3 10^3/uL (0-0.7); Absolute Lymphocytes 0.8 10^3/uL (1.2-3.4); Absolute Monocytes 0.9 10^3/uL (0.1-0.6); Absolute Neutrophils 6.9 10^3/uL (1.4-6.5); Hematocrit 27.4 % (39.0-52.0); Hemoglobin 8.6 g/dL (13.0-18.0); Mean Corp Hgb Conc. 31.4 g/dL (33.0-37.0); Mean Corpuscular Hgb 22.5 pg (27.0-31.0); Mean Corpuscular Volume 71.7 fL (80.0-94.0); Mean Platelet Volume 10.3 fL (7.4-10.4); Nucleated Red Blood Cells % 0 % (-); Platelet Count 368 10^3/uL (130-400); Red Blood Cell Count 3.82 10^6/uL (4.70-6.10); Red Cell Dist. Width 17.8 % (11.5-14.5); White Blood Cell Count 8.9 10^3/uL (4.8-10.8)
--- NOTE | 2023-09-09 09:24 | W.PN.HOSP.TC ---
Today's Communication/Plan
-
PT/OT
Discharge planning
Change to oral antibiotics
Assessment / Plan
Assessment / Plan
Gen-AAOx3, NAD
HEENT-NC, AT, anicteric, clear oral mm
Neck-supple
CV-reg, no M, +S1/S2
Lungs-clear B/L
Abd-soft, nontender, improving distention.
Ext-no edema
Musculoskeletal-no cyanosis, clubbing
Skin-warm and dry
Neuro-grossly non-focal
Psych-calm, cooperative
Ileus -resolved. No obstruction noted on CT scan. Suspect ileus related to sepsis, UTI. Tolerating solid food.
Sepsis -due to catheter associated UTI. Urine culture shows Providencia, blood cultures negative. Currently on IV ceftriaxone. White blood cell count now normal. Will change antibiotics to cefdinir. Today is day 4 of 7 for antibiotics.
Chronic urinary retention/chronic roldan catheter - his catheter was last changed morning of admission.
BiV-ICD - interrogated by ED, battery life depleted. Ask Cardiology to comment on device change.
Chronic HFpEF - stable.
COPD without exacerbation
Essential HTN -stable, hypotension resolved with IV fluids.
Hyperlipidemia
Chronic anemia - microcytic. Will need follow up with PCP. Unclear etiology. Hemoglobin at baseline.
Functional paraparesis - bedbound.
DNR
Dispo -medically stable for discharge. Family contemplating SNF. Consult PT/OT. Case management aware. Updated daughter Kristin on the phone. All questions answered.
Anticipated Discharge: Within 24 hours
Subjective/Interval History
-
Date of Service: September 09, 2023
Patient seen and examined. Feels fine. No complaints. Finished breakfast.
Objective Data
-
Labs:
Laboratory Results
09/09/23
06:18
WBC 8.9
Hgb 8.6 L
Hct 27.4 L
Plt Count 368 D
Vital Signs:
Vital Signs
Temp Pulse Resp BP Pulse Ox
97.7 F 72 18 119/63 94
09/09/23 07:00 09/09/23 07:00 09/09/23 07:00 09/09/23 07:00 09/09/23 07:00
I&O
09/08/23 09/09/23 09/10/23
06:59 06:59 06:59
Intake Total 1090 / 1090 1770 / 1770 480 / 480
Output Total 1100 / 1100 1600 / 1600 875 / 875
Balance -10 / -10 170 / 170 -395 / -395
Review of Systems
-
History Source: Patient
All other systems: Reviewed and negative
[2023-09-09] MEDS: OMNICEF 300 MG PO ×2 (10:06→19:27)
--- NOTE | 2023-09-09 11:01 | CM ---
Addendum entered by Shweta Joya 09/09/23 14:45:
[facility] accepted patient. CM on phone for authorization. Bed available tomorrow. physician updated.
Original Note:
CM spoke with patient daughter who requested patient be referred to [facility] as aide is not currently available at home. Patient awaiting PT/OT assessment. CM will send referral and await response. CM will continue to follow for discharge
planning needs.
Plan; SNF
[2023-09-10 06:00] VITALS: BMI 19.2
[2023-09-10 07:00] VITALS: BP 124/78
[2023-09-10] MEDS: OMNICEF 300 MG PO (08:03)
[2023-09-10] MEDS: DITROPAN 5 MG PO (08:03)
[2023-09-10] MEDS: FLOMAX 0.400000000000000022 MG PO (08:03)
--- NOTE | 2023-09-10 10:57 | W.PN.HOSP.TC ---
Today's Communication/Plan
-
Discharge planning
Assessment / Plan
Assessment / Plan
Gen-AAOx3, NAD
HEENT-NC, AT, anicteric, clear oral mm
Neck-supple
CV-reg, no M, +S1/S2
Lungs-clear B/L
Abd-soft, nontender, improving distention.
Ext-no edema
Musculoskeletal-no cyanosis, clubbing
Skin-warm and dry
Neuro-grossly non-focal
Psych-calm, cooperative
Ileus -resolved. No obstruction noted on CT scan. Suspect ileus related to sepsis, UTI. Tolerating solid food.
Sepsis -due to catheter associated UTI. Urine culture shows Providencia, blood cultures negative. Currently on IV ceftriaxone. White blood cell count now normal. Continue cefdinir. Today is day 5 of 7 for antibiotics.
Chronic urinary retention/chronic roldan catheter - his catheter was last changed morning of admission.
BiV-ICD - interrogated by ED, battery life depleted. Ask Cardiology recommends outpatient follow-up.
Chronic HFpEF - stable.
COPD without exacerbation
Essential HTN -stable, hypotension resolved with IV fluids.
Hyperlipidemia
Chronic anemia - microcytic. Will need follow up with PCP. Unclear etiology. Hemoglobin at baseline.
Functional paraparesis - bedbound.
DNR
Dispo -medically stable for discharge to SNF. Case management aware.
Anticipated Discharge: Today
Subjective/Interval History
-
Date of Service: September 10, 2023
Patient seen and examined. No complaints.
Objective Data
-
Vital Signs:
Vital Signs
Temp Pulse Resp BP Pulse Ox
98.2 F 80 18 124/78 95
09/10/23 07:00 09/10/23 07:00 09/10/23 07:00 09/10/23 07:00 09/10/23 07:00
I&O
09/09/23 09/10/23 09/11/23
06:59 06:59 06:59
Intake Total 1770 / 1770 1560 / 1560
Output Total 1600 / 1600 2675 / 2675
Balance 170 / 170 -1115 / -1115
Review of Systems
-
History Source: Patient
All other systems: Reviewed and negative
--- NOTE | 2023-09-10 11:26 | W.DS.TRANS ---
DC Summary - Shake Table Operator
-
Discharge Instructions:
Discharge Diagnosis/Procedures Ileus, sepsis, catheter associated UTI
Diet Low Residue
Activity With assistance
Driving Restrictions No driving
Bathing Restrictions None
Instructions:
Stand-Alone Forms:
Changes to Home Medications: No
Discharge Medications:
DC Medications w/original date entered in [facility]
furosemide 40 mg tablet 20 mg PO DAILY Fluid retention/Swelling 02/06/22
ipratropium 0.5 mg-albuterol 3 mg (2.5 mg base)/3 mL nebulization soln 3 ml inhalation R QID PRN shortness of breath #90 mL 07/17/22
tamsulosin 0.4 mg capsule 0.4 mg PO DAILY urinary retention #30 caps 07/18/22
acetaminophen 500 mg tablet (Pain Relief Extra Strength (acetaminophen)) 500 mg PO Q8HPRN PRN Pain 09/06/23
docusate sodium 100 mg capsule (Colace) 100 mg PO DAILY 09/06/23
melatonin 5 mg tablet 5 mg PO HS PRN sleep 09/06/23
oxybutynin chloride 10 mg tablet,extended release 24 hr 10 mg PO DAILY 09/06/23
sennosides 8.6 mg tablet (senna) 17.2 mg PO BID 09/06/23
cefdinir 300 mg capsule 300 mg PO Q12 #0 caps 09/09/23
Home Medication Changes
Pending Results: No
--- NOTE | 2023-09-10 11:52 | CM ---
Patient auth approved per Stephanie at [facility] 09/09-09/14 auth # [id number] next review date is 09/14 [phone] CM called to SNF and left VM for Marline/admissions with update. Ambulance auth is [id number] Acute Care. CM called to patient daughterKristin and
update provided. CM will email IMM form to daughter at [email or web address]. CM sent auth information to [facility] awaiting response. CM will continue to follow for discharge planning needs.
Plan; SNF today
please call report to [phone]/fax [phone]
[2023-09-10 14:24] LABS: COVID-19 Antigen Negative (Negative)
[2023-09-10 15:00] VITALS: BP 107/67
--- NOTE | 2023-09-10 17:49 | PTCARENOTE ---
pt discharged via stretcher/ambulance, accompanied by ambulance crew. pt is aware of transfer. all personal belongings sent with pt
== END 2023-09-10 17:35 | DRG 698 ==
LOC: 4 WEST ACU 19:20
PROVIDERS: Emergency Medicine; Physician Assistant Medical; ADMITTING PHYSICIAN Hospitalist; CONSULT PHYSICIAN Internal Medicine Cardiovascular Disease; CONSULT PHYSICIAN Surgery; EMERGENCY PHYSICIAN Student in an Organized Health Care Education/Training Program; FAMILY PHYSICIAN Family Medicine
DX: T83.511A Infection and inflammatory reaction due to indwelling urethral catheter, initial encounter (principal); A41.89 Other specified sepsis; I50.32 Chronic diastolic (congestive) heart failure; Z68.1 Body mass index [BMI] 19.9 or less, adult; K56.7 Ileus, unspecified; I48.21 Permanent atrial fibrillation; N39.0 Urinary tract infection, site not specified; R33.8 Other retention of urine; I11.0 Hypertensive heart disease with heart failure; J44.9 Chronic obstructive pulmonary disease, unspecified; D64.9 Anemia, unspecified; F44.4 Conversion disorder with motor symptom or deficit; R63.6 Underweight; Z66 Do not resuscitate; Z74.01 Bed confinement status
CPT/HCPCS: 71046; 74018; 74177; 80048; 80053; 81003; 81015; 83605; 85025; 85027; 87040; 87070; 87077; 87086; 87147; 87186; 87811; 93005; 94640; 96365; 97162; 97166; 99285; Q9967

== ENCOUNTER → 2023-12-15 16:09 | Outpatient (REF) | payer OTHER, SELFPAY | LOC: RCS 16:09 | PROVIDERS: ATTENDING PHYSICIAN Internal Medicine Cardiovascular Disease; FAMILY PHYSICIAN Family Medicine | DX: I25.5 Ischemic cardiomyopathy (principal) | CPT/HCPCS: 93306 ==

== ENCOUNTER 2023-12-27 09:51 | Day surgery (SDC) | payer OTHER, SELFPAY ==
[2023-12-27] VITALS (14 sets, daily range): BP systolic 121–148; BP diastolic 69–85; BMI 20.8
[2023-12-27] MEDS: NSS 500 IV (10:28)
--- NOTE | 2023-12-27 13:54 | W.ICD.CONTRA ---
Post ICD/BEAUTY THERAPIST-D
-
History of MS?: No
LV Function
Left ventricular function study result?: Ejection Fraction >/= 40%
ACEI/ARB/ARNI
Patient already on ACEI/ARB/ARNI: No
ACEI/ARB/ARNI Contraindication: Hypotension
Beta-Kenan
Patient already on Beta Kenan: No
--- NOTE | 2023-12-27 15:01 | ITS.CL.ICD ---
[employer] - ICD
Implantable Cardioverter Defibrillator
Procedure Report:
Dual Chamber Implantable Cardioverter� Defibrillator Generator Change:
Mr. Ray is a very pleasant 78 years old gentleman with chronic systolic heart failure and s/p AIRVEYOR OPERATOR-D and pacemaker dependence with end of battery life is here for generator change.
Indications: Severe systolic dysfunction
Date of the Procedure: 12/27/2023
Pre-Operative Diagnosis: Heart failure with reduced ejection fraction and end of battery life.
Post-Operative Diagnosis: Heart failure with reduced ejection fraction
Procedure Performed: BIVENTRICULAR IMPLANTABLE CARDIOVERRTER DEFIBRILLATOR GENERATOR CHANGE
Surgeon:
Nato Villa MD
Anesthesia:
See anesthesia records
Detailed Description of the Procedure:
The patient was identified using hospital identification and informed consent obtained for the procedure. The risks were explained including, but not limited to: Bleeding, infection, arrhythmia, stroke, vascular/cardiac/lung puncture, surgery,
pacemaker dependency/device malfunction. All questions were answered.
The patient was brought to the electrophysiology laboratory in stable condition in fasting state. Continuous electrocardiographic and hemodynamic monitoring was initiated.
The initial rhythm BiV paced rhythm.
The procedure site was meticulously prepared with surgical scrub and allowed to dry with no pooling. Sterile draping was applied to cover the procedure site. The image intensifier was draped with sterile bag and positioned over the patient.
The left infraclavicular region was prepped and draped in the usual sterile fashion. Local anesthesia was administered subcutaneously using 1% lidocaine / bupivacaine. The incision was made on the previous scar. The old ICD generator was accessed
and the adhesions were removed with care to avoid damage to the leads. The ICD capsule was cut to access the generator. The old device was attached to the underlying fascia and adhesions were cut to free the device. It was removed from the body. The
Weitlaner retractor was placed in the incision and used as access to skin for unipolar pacing as needed.
The leads were gradually removed and placed in the respective locations in the newer generator without any significant pause noted.
The old pocket and capsule was modified and the excessive scar was removed. The new device was placed in the modified pocket.
A TYRX absorbable antibacterial envelope was used and was placed around the device and leads.
There was excellent sensing, pacing, and impedance from the leads.�Bovie cautery, and antibiotics were used.
The wound was irrigated thoroughly with antibiotic solution and closed in 3 layers using 2-0, V loc sutures and 4-0 VLoc sutures. Steri-Strips and a bandage were applied externally.�
Procedure End:
The procedure was tolerated well. A bandage was applied to the incision area.
Estimated Blood loss:
5 cc
Fluoro time:
0 min
Specimens Removed:
No cultures and no specimens were obtained. No intraoperative pathology was identified.
Urine output:
None
Packs / Drains/ Tubes:
None
Instrument / Sponge Count Correct:
Yes
Complications of the Procedure:
None
Condition of Patient at Time of Transfer:
Hemodynamically stable with no neurological or vascular compromise.
Device information:�
Generator: Verve Mobile; Model# [id number]; Serial# [id number].
����������� Implanted: 12/27/2023
Atrial Lead: Medtronic; Model# [id number]; Serial# [id number].
����������� Implanted: 09/05/2009
Measured data in the right atrium was sensing of 3.8 mV, impedance of 380 ohms and threshold of 0.5 V at 0.4ms�
RV Lead: Medtronic; Model# [id number]; Serial# [id number].
����������� Implanted: 09/05/2009
Measured data in the RV lead was 0 sensing, impedance of 342ohms and threshold of 1.25 V at 0.4ms�
LV Lead: Medtronic; Model# 4194-88cm; Serial# [id number].
����������� Implanted: 09/05/2009
Measured data in the LV lead was impedance of 836ohms and threshold of 1.0 V at 0.4ms�
Explanted device:
Medtronic model number: [id number]; serial number: [id number]
Implanted on: 07/28/2016; explanted on 12/27/2023
PROGRAMMING PARAMETERS:�
Michi parameter settings were DDD 50-130 bpm. �
����������� Mode switch: On
�����������
����������� Rate Adaptive A-V Interval: On
Output� parameters:
����������������������� Amplitude (V)������������� Pulse Width (ms)������� Sensitivity (mV)
����������� RA: ����� 1.5 ����������������������������� 0.4������������������������������ 0.3
����������� RV:������ 2.5������������������������������ 0.4������������������������������ 0.3
����������� LV:������ 1.5������������������������������ 0.4������ (LVtip-->LVring)���������������������
Tachy parameter settings:
����������� SVT discrimination: On
AF/AFl: On
SVT limit: 260 msec
����������� VT zone:
����������������������� VT: 150 - 188 bpm --> monitor
����������������������� VF: >188 bpm --> Shock� x6
�����������
Summary:
Successful generator change of MRI compatible Medtronic Biventricular ICD pacemaker with atrial lead.
Results/Recommendations:
1. Please provide patient with adequate pain control�
Instructions to be given to patient:�
- Please follow up with [facility] at [address] [place] [address] ([phone]) to get your wound checked within 7 days of your discharge.
- Do not wet incision site until after it is evaluated at cardiology clinic. No showers until then. Sponge baths are OK.�
- Allow 'steri strips' to fall off on their own�
- Do not lift left elbow above shoulder, particularly with sudden jerking movements, for 1 month�
- Do not lift anything weighing more than 5 pounds with the left arm for 1 month�
- If you notice any fevers, shortness of breath, lightheadedness, chest pain, or worsening swelling in the wound site, please contact the arrhythmia clinic, contact your [employer], or present to the hospital for evaluation.�
Nato Villa MD
Electrophysiology
[2023-12-27] MEDS: TYLENOL 650 MG PO (15:10)
== END 2023-12-27 15:53 | disposition home or self-care (01) ==
LOC: CATH 09:51
PROVIDERS: ATTENDING PHYSICIAN Internal Medicine Cardiovascular Disease; FAMILY PHYSICIAN Family Medicine; OTHER PHYSICIAN Internal Medicine Cardiovascular Disease
DX: Z45.02 Encounter for adjustment and management of automatic implantable cardiac defibrillator (principal); I11.0 Hypertensive heart disease with heart failure; I50.22 Chronic systolic (congestive) heart failure; I48.21 Permanent atrial fibrillation; I25.10 Atherosclerotic heart disease of native coronary artery without angina pectoris; Z95.5 Presence of coronary angioplasty implant and graft; E78.5 Hyperlipidemia, unspecified; I44.7 Left bundle-branch block, unspecified; E11.9 Type 2 diabetes mellitus without complications; Z87.891 Personal history of nicotine dependence
CPT/HCPCS: 33264; C1882

== ENCOUNTER → 2024-01-11 17:27 | Outpatient (REF) | payer MEDICARE, SELFPAY | LOC: RAD 17:27 | PROVIDERS: ATTENDING PHYSICIAN Physician Assistant Medical; FAMILY PHYSICIAN Family Medicine | DX: J20.9 Acute bronchitis, unspecified (principal) | CPT/HCPCS: 71046 ==

== ENCOUNTER 2024-03-30 16:37 | Emergency (ER) | payer OTHER, SELFPAY ==
[2024-03-30 17:10] VITALS: BP 115/79
[2024-03-30 19:12] VITALS: BP 129/76
[2024-03-30 19:28] LABS: Urine Albumin 1+ (Neg - Trace); Urine Bilirubin Negative (Negative); Urine Character Very Cloudy (Clear); Urine Color Yellow; Urine Glucose Negative (Negative); Urine Ketone Negative (Negative); Urine Leukocyte 2+ (Negative); Urine Nitrite Positive (Negative); Urine Occult Blood 4+ (Negative); Urine Specific Gravity 1.015 (<1.030); Urine Urobilinogen Negative (Neg - 1+)
[2024-03-30 19:35] LABS: Urine Squamous Cell 0-2 /LPF (Few); Urine Triple Phosphate Crystal Present
[2024-03-30 19:36] LABS: Urine Bacteria Many (Negative)
--- NOTE | 2024-03-30 19:46 | ED.GENMED ---
History of Present Illness
General
Chief Complaint: Catheter/Tube Problem
Source: patient
Exam Limitations: none
Time Seen by Provider: 03/30/24 18:58
Nursing documentation reviewed up to this point in time: agreed with
History of Present Illness
History of Present Illness:
78-year-old male past medical history of CHF, CAD, COPD presenting to the emergency department today with concerns of leaking around his chronic Hurd catheter. Denies additional symptoms no fevers abdominal pain nausea vomiting.
Past History
Past History
ED Past Medical History: Arrthythmia (Atrial fibrillation), CAD, CHF, COPD and [place]
ED Past Surgical History: Cardiac (ICD implantation), Orthopedic (Cyst on left hand) and Other (Hernia repair)
Patient has exhibited threatening behavior?: No
PSI?: No
Social History
Tobacco: Former smoker
Alcohol: Occasional
Drug: None
Personal:
Living: with family
Employment: Retired
Family History
Family History: Other (Noncontributory )
Review of Systems
Review of Systems
Allergies reviewed?: Yes
All Other Systems: ROS reviewed and negative except as documented in HPI and ROS
Phy Exam
Physical Exam
Physical Exam:
GENERAL: Alert , in no apparent distress
EYE: pupils equal and reactive
NECK: Supple, no significant adenopathy.
ENT: o/p clr, mmm.
CARDIAC: Regular rate and rhythm .
LUNGS: Clear breath sounds bilaterally, no acute respiratory distress, no wheezes/rales/rhonchi
ABDOMEN: Soft, without focal tenderness, no r/g, no cvat
NEUROLOGICAL: Alert and oriented, no focal neuro deficits
SKIN: Warm and dry, skin intact.
MUSCULOSKELETAL: No edema, well perfused.
PSYCH: Normal and appropriate interaction.
Course
Orders/Labs/Results
Orders:
Orders
03/30/24 19:13
Hurd [Hurd Placement- Treatment] ONCE
Reason for insertion: Chronic Hurd on Admit
03/30/24 19:19
Urinalysis Reflex To Culture Urgent
Date Specimen was Collected: 03/30/24
Time Specimen was Collected: :16
Urine Microscopic Reflex Cult Urgent
Urine Culture Urgent
JAMARI Source: U
Specimen Description:
Date Specimen was Collected: 03/30/24
Time Specimen was Collected: :16
03/30/24 19:43
Cefdinir [Omnicef] 300 mg PO NOW STA
Abnormal Lab Results
03/30/24
19:19
Ur Occult Blood Reflex 4+ A
(Negative)
Urine Nitrite (Reflex) Positive A
(Negative)
Leukocyte Esterase Rfl 2+ A
(Negative)
Urine RBC 11-15 A /HPF
(0-2)
Urine WBC (Reflex) 11-15 A /HPF
(0-5)
Urine Bacteria (Reflex) Many A
(Negative)
Urine Albumin (Reflex) 1+ A
(Neg - Trace)
Vital Signs
Initial and Last Documented VS:
Initial Vital Signs
Temp Pulse Resp BP Pulse Ox
97.9 F 98 18 115/79 94
03/30/24 17:10 03/30/24 17:10 03/30/24 17:10 03/30/24 17:10 03/30/24 17:10
Last Documented Vital Signs
Temp Pulse Resp BP Pulse Ox
97.9 F 68 16 141/76 98
03/30/24 17:10 03/30/24 20:00 03/30/24 20:00 03/30/24 20:00 03/30/24 20:00
MDM/Problems Addressed
MDM/Problems Addressed:
78-year-old male presenting to the emergency department with leaking around his Hurd catheter. Scheduled to be replaced in a few days but irritated by the leaking. This was replaced urinalysis that did not show evidence of potential infection.
Was started on antibiotic otherwise will follow-up closely with urology. Return precautions given.
*Critical Care Note
Total Time (30-74mins, 75-104mins- exclusive of procedures): Not Applicable
ED Attending Note
-
Portions of this chart may have been created with voice recognition software.� Occasional wrong word or��sound alike� substitutions may have occurred due to the inherent limitations of voice recognition software.
Discharge Plan
Departure
Patient Disposition: Home (Routine Discharge)
Date of Disposition: 03/30/24
Time of Disposition: 19:46
Patient with high blood pressure during this ER visit?: No
Condition: Good
Covid-19: Not Applicable
Discharge Problem:
Acute UTI, Encounter for Hurd catheter replacement
Instructions: How to Care for Your Hurd Catheter, Male, Urinary tract infection in adults - ED discharge instructions
Prescriptions:
New
cefdinir 300 mg capsule
300 mg PO BID 7 Days Qty: 14 0RF
No Action
melatonin 5 mg Tablet
5 mg PO HS PRN (Reason: sleep)
acetaminophen [Pain Relief ES (acetaminophen)] 500 mg tablet
500 mg PO Q8HPRN PRN (Reason: Pain)
ipratropium-albuterol 0.5 mg-3 mg(2.5 mg base)/3 mL Solution For Nebulization
3 ml INHALATION TID PRN (Reason: SOB)
pantoprazole 40 mg Tablet,Delayed Release (Dr/Ec)
40 mg PO DAILY
diphenhydramine HCl 25 mg Tablet
50 mg PO BID
finasteride 5 mg Tablet
5 mg PO DAILY
Trelegy Ellipta 100-62.5-25 mcg Blister With Device
1 inh INHALATION DAILY
furosemide 20 mg Tablet
20 mg PO DAILY
Referrals:
Grayson Lyons MD [Family Provider] -
Activity Restrictions/Additional Instructions:
You came to the emergency department today with concerns of leakage around your Hurd catheter. Please take the prescribed antibiotic follow-up closely with urology. Return to the emergency department any worsening, new or concerning symptoms.
Interventions
Interventions:
*Risk Screen - Suicide Last Done: 03/30/24 17:10
*General Assessment Last Done: 03/30/24 17:10
*Neglect/Abuse Screening Last Done: 03/30/24 17:10
ED- Fall Risk Assessment Last Done: 03/30/24 19:11
*ED COVID-19 Vaccine History Last Done: 03/30/24 17:10
*Nursing Disposition Last Done: 03/30/24 20:40
ZP-Dsimte-Rvzrfdthaf Assessment Last Done: 03/30/24 19:11
ED-Male Genitourinary Assessment Last Done: 03/30/24 19:11
Discharge Date and Time
Print Language: SINGAPOREAN
[2024-03-30 20:00] VITALS: BP 141/76
[2024-03-30] MEDS: OMNICEF 300 MG PO (20:08)
== END 2024-03-30 20:40 | disposition home or self-care (01) ==
LOC: EMR 16:37
PROVIDERS: Physician Assistant; EMERGENCY PHYSICIAN Emergency Medicine; FAMILY PHYSICIAN Family Medicine
DX: N39.0 Urinary tract infection, site not specified (principal); Z46.6 Encounter for fitting and adjustment of urinary device; I25.10 Atherosclerotic heart disease of native coronary artery without angina pectoris; I48.91 Unspecified atrial fibrillation; I50.9 Heart failure, unspecified; J44.9 Chronic obstructive pulmonary disease, unspecified; Z87.891 Personal history of nicotine dependence
CPT/HCPCS: 51702; 99283; 81003; 81015; 87086

== ENCOUNTER 2024-05-09 16:12 | Inpatient (IN) | payer OTHER, SELFPAY ==
[2024-05-09] VITALS (13 sets, daily range): BP systolic 90–130; BP diastolic 53–78; BMI 22.6
--- NOTE | 2024-05-09 09:42 | ED.GENMED ---
History of Present Illness
General
Chief Complaint: Catheter/Tube Problem
Source: patient
Exam Limitations: none
Time Seen by Provider: 05/09/24 09:37
History of Present Illness
History of Present Illness:
See MDM
Past History
Past History
ED Past Medical History: Arrthythmia (Atrial fibrillation), CAD, CHF, COPD and [place]
ED Past Surgical History: Cardiac (ICD implantation), Orthopedic (Cyst on left hand) and Other (Hernia repair)
Patient has exhibited threatening behavior?: No
PSI?: No
Social History
Tobacco: Former smoker
Alcohol: Occasional
Drug: None
Personal:
Living: with family
Employment: Retired
Family History
Family History: Other (Noncontributory )
Phy Exam
Physical Exam
Physical Exam:
See MDM
Course
Orders/Labs/Results
Orders:
Orders
05/09/24 09:40
Catheter [Hurd Placement- Treatment] ONCE
Reason for insertion: Chronic Hurd on Admit
Dexamethasone Sod Phosphate [Decadron] 10 mg IV NOW STA
Ipratropium/Albuterol Sulfate [Duoneb] 3 ml INH R NOW STA
CR Chest - 2 Views Urgent
Comment:
Reason For Exam: SOB, hx COPD
05/09/24 09:41
Electrocardiogram (*1) Urgent
Reason for Study: Shortness of Breath
EKG- Treatment ONCE
05/09/24 09:56
COVID-19 Antigen Urgent
Source: Nasal Swab
Complete Blood Count/With Diff Urgent
Comprehensive Metabolic Panel Urgent
Manual Differential Urgent
NT-proBNP Urgent
Troponin I Urgent
Influenza A+B Rapid Molecular Urgent
JAMARI Source: Nasal Swab
Specimen Description:
05/09/24 09:58
Lidocaine 2% [Lidocaine Uro-Jet 2%] 1 syringe .ROUTE .STK-MED ONE
05/09/24 10:07
Morphine Sulfate 4 mg IV NOW STA
05/09/24 10:15
Urinalysis Urgent
Date Specimen was Collected: 05/09/24
Time Specimen was Collected: 10:14
Urine Microscopic Urgent
Date Specimen was Collected: 05/09/24
Time Specimen was Collected: 10:14
05/09/24 10:58
Aspirin Chewable [Low Strength Aspirin] 324 mg PO NOW STA
Abnormal Lab Results
05/09/24 05/09/24
09:56 10:15
WBC 32.0 H 10^3/uL
(4.8-10.8)
Hgb 10.9 L g/dL
(13.0-18.0)
Hct 36.7 L %
(39.0-52.0)
MCV 72.0 L fL
(80.0-94.0)
MCH 21.4 L pg
(27.0-31.0)
MCHC 29.7 L g/dL
(33.0-37.0)
RDW 19.7 H %
(11.5-14.5)
MPV 10.6 H fL
(7.4-10.4)
Abs Neuts (Manual) 30.7 H 10^3/uL
(1.4-6.5)
Segmented Neutrophils 82 H %
(42-75)
Band Neutrophils 14 H %
(0-3)
Lymphocytes (Manual) 1 L %
(20-51)
BUN 27 H mg/dl
(9-20)
Creatinine 1.6 H mg/dL
(0.7-1.3)
Glucose 108 H mg/dl
(70-99)
Alkaline Phosphatase 132 H U/L
(38-126)
Troponin I 0.515 H* ng/ml
Urine Ketones 1+ A
(Negative)
Urine Occult Blood 4+ A
(Negative)
Urine Nitrite Positive A
(Negative)
Ur Leukocyte Esterase 3+ A
(Negative)
Urine RBC >100 A /HPF
(0-2)
Urine WBC 11-15 A /HPF
(0-5)
Urine Bacteria Many A
(Negative)
Urine Albumin 3+ A
(Neg - Trace)
05/09/24 09:56
05/09/24 09:56
Vital Signs
Initial and Last Documented VS:
Initial Vital Signs
Temp Pulse Resp BP Pulse Ox
98.5 F 74 16 108/60 98
05/09/24 09:40 05/09/24 09:40 05/09/24 09:40 05/09/24 09:40 05/09/24 09:40
Last Documented Vital Signs
Temp Pulse Resp BP Pulse Ox
98.4 F 82 23 108/60 98
05/09/24 09:43 05/09/24 09:45 05/09/24 09:45 05/09/24 09:43 05/09/24 09:40
MDM/Problems Addressed
Differential Diagnosis Includes:
HPI and MDM Narrative:
79-year-old male presenting with a blocked Hurd catheter. Patient states he has been unable to urinate since last night. Evaluation of the catheter shows that it has not been changed in quite a while. He is also complaining of shortness of
breath and states he has a history of COPD. Patient does have poor air exchange on exam. He denies any chest pain or leg swelling. Given his history of COPD, will give steroids and a DuoNeb. Will change his catheter and obtain basic blood work
Physical exam
General: Well appearing and non-toxic
HEENT: protecting airway
Neck: appears supple
CV: No evidence of cyanosis. Regular rate and rhythm
Resp: No accessory muscle use. Poor air exchange. No significant wheezing appreciated
Abd: Non-distended
Extremities: No leg edema
Neuro: alert
Psych: Normal affect
Skin: Intact
Problems Addressed including Acute and Chronic Conditions affecting care:
1. Blocked Hurd catheter
Acuity: acute
Prognosis: stable
Details: Will change catheter
2. Shortness of breath
Acuity: acute
Prognosis: stable
Details: Given history of COPD, will give DuoNeb and IV Decadron. Will obtain screening EKG and chest x-ray
Updates
Chest x-ray clear. Patient found to have elevated troponin and BNP. Will give aspirin. Will admit his COPD exacerbation and for troponin trending
Differential Diagnosis (but not limited to): COPD exacerbation, clogged catheter, ACS
Testing considered: D-dimer but there is no clinical signs of DVT
Drug therapy (if applicable): OTC meds, please see d/c instruction regarding Rx drugs
Amount and/or Complexity of Data Reviewed
Clinical info obtained from: Patient
External data reviewed: N/A
Labs I independently reviewed (but not limited to): Elevated BNP and troponin
Radiology: X-ray independently reviewed: Chest x-ray clear
Pulse Ox: not hypoxic
EKG independently reviewed: Ventricular paced rhythm, left axis, no STEMI
Life Enrichment Assistant: Paced rhythm
Critical Care: N/A
Risk of Complication:
Social Determinants of health: Good social support
Discussed with other providers: Hospitalist
Escalation of Care includes Admit/Obs: Given the persistent short of breath with elevated troponin and BNP, will admit for further evaluation
Occasional wrong word or 'sound a like' substitutions may have occurred due to the inherent limitations of voice recognition software. Read the chart carefully and recognize, using context, where substitutions have occurred.
*Critical Care Note
Total Time (30-74mins, 75-104mins- exclusive of procedures): Not Applicable
ED Attending Note
-
Portions of this chart may have been created with voice recognition software.� Occasional wrong word or��sound alike� substitutions may have occurred due to the inherent limitations of voice recognition software.
Discharge Plan
Departure
Patient Disposition: Admit
Date of Disposition: 05/09/24
Time of Disposition: 11:55
Admit to: Telemetry
Presentation/result/management discussed w/ accepting MD/DO: Hospitalist
Discharge Problem:
Asthma exacerbation in COPD
Prescriptions:
No Action
melatonin 5 mg Tablet
5 mg PO HS PRN (Reason: sleep)
ipratropium-albuterol 0.5 mg-3 mg(2.5 mg base)/3 mL Solution For Nebulization
3 ml INHALATION TIDPRN PRN (Reason: SOB)
pantoprazole 40 mg Tablet,Delayed Release (Dr/Ec)
40 mg PO DAILY
diphenhydramine HCl 25 mg Tablet
50 mg PO QPMPRN PRN (Reason: sleep)
finasteride 5 mg Tablet
5 mg PO DAILY
furosemide 20 mg Tablet
20 mg PO DAILY
Trelegy Ellipta 100-62.5-25 mcg Blister With Device
1 inh INHALATION DAILY
nitrofurantoin macrocrystal 50 mg Capsule
50 mg PO DAILY
albuterol sulfate 90 mcg/actuation Hfa Aerosol Inhaler
1 inh INHALATION Q6HPRN PRN (Reason: sob)
apixaban 5 mg Tablet
5 mg PO BID
acetaminophen 500 mg Tablet
1,000 mg PO Q6HPRN PRN (Reason: mild pain)
Referrals:
Grayson Lyons MD [Family Provider] -
Interventions
Interventions:
*Risk Screen - Suicide Last Done: 05/09/24 09:40
*General Assessment Last Done: 05/09/24 09:40
*Neglect/Abuse Screening Last Done: 05/09/24 09:40
ED- Fall Risk Assessment Last Done: 05/09/24 09:40
*ED COVID-19 Vaccine History Last Done: 05/09/24 09:40
UM-Goysdh-Edtvfczdfl Assessment Last Done: 05/09/24 09:40
ED-Male Genitourinary Assessment Last Done: 05/09/24 09:40
Discharge Date and Time
Print Language: [place]OREAN
[2024-05-09] MEDS: DUONEB 3 ML INH (09:59)
[2024-05-09] MEDS: DECADRON 10 MG IV (10:00)
--- NOTE | 2024-05-09 10:07 | EDRN ---
Patient arrived to ER via EMS with indwelling roldan catheter that patient states is blocked,patient bladder scanned for 10ml of urine, no output noted in drainage bag. Catheter tubing and bag noted to have dark sediment residue and patients brief
was wet as well, sediment noted around tip of catheter and patient states pain when removed. New 20F catheter placed per MD order, patient states increased pain at initial insertion then relief, blood tinged urine initially followed by souleymane, cloudy
urine. Patient also SOB on arrival 98% RA, breathing treatment administered.
[2024-05-09 10:12] LABS: Hematocrit 36.7 % (39.0-52.0); Hemoglobin 10.9 g/dL (13.0-18.0); Mean Corp Hgb Conc. 29.7 g/dL (33.0-37.0); Mean Corpuscular Hgb 21.4 pg (27.0-31.0); Mean Platelet Volume 10.6 fL (7.4-10.4); Platelet Count 188 10^3/uL (130-400); Red Cell Dist. Width 19.7 % (11.5-14.5)
[2024-05-09] MEDS: MORPHINE SULFATE 4 MG IV (10:14)
[2024-05-09 10:19] LABS: ALT (SGPT) 20 U/L (0-50); AST (SGOT) 30 U/L (17-59); Albumin 4.2 g/dl (3.5-5.0); Alkaline Phosphatase 132 U/L (38-126); Blood Urea Nitrogen 27 mg/dl (9-20); Calcium 9.3 mg/dl (8.4-10.2); Carbon Dioxide 23 mmol/L (22-30); Chloride 107 mmol/L (98-107); Estimated Creatinine Clearance 34 ml/min; Glucose 108 mg/dl (70-99); Potassium 4.9 mmol/L (3.5-5.1); Sodium 140 mmol/L (135-145); Total Bilirubin 1.1 mg/dl (0.2-1.3); Total Protein 7.2 g/dl (6.3-8.2); eGFR 43.02
[2024-05-09 10:33] LABS: NT-proBNP 6680 pg/ml; Troponin I 0.515 ng/ml
[2024-05-09 10:40] LABS: Urine Albumin 3+ (Neg - Trace); Urine Bilirubin Negative (Negative); Urine Character Cloudy (Clear); Urine Glucose Negative (Negative); Urine Ketone 1+ (Negative); Urine Leukocyte 3+ (Negative); Urine Nitrite Positive (Negative); Urine Occult Blood 4+ (Negative); Urine Urobilinogen 1+ (Neg - 1+)
[2024-05-09 10:43] LABS: Absolute Neutrophils -Man Diff 30.7 10^3/uL (1.4-6.5); Anisocytosis 1+; Band Neutrophils 14 % (0-3); Hypochromasia 1+; Lymphocytes 1 % (20-51); Metamyelocytes 1 % (-); Monocytes 2 % (2-9); Normal RBC Morphology No; Platelets Checked Yes; Segmented Neutrophils 82 % (42-75)
[2024-05-09 10:44] LABS: Ovalocytes 1+; Polychromasia 1+; Target Cells Occasional; Total Cells Counted 100
[2024-05-09 10:45] LABS: COVID-19 Antigen Negative (Negative)
[2024-05-09 10:53] LABS: Urine Color Amber
[2024-05-09] MEDS: LOW STRENGTH ASPIRIN 324 MG PO (11:05)
[2024-05-09 11:33] LABS: Urine Amorphous Seen; Urine Red Blood Cell >100 /HPF (0-2); Urine Squamous Cell 0-2 /LPF (Few)
[2024-05-09 11:34] LABS: Urine Bacteria Many (Negative)
--- NOTE | 2024-05-09 15:00 | CON.CAR ---
Addendum entered and electronically signed by Tyrone Goodson MD 05/09/24 17:47:
I saw and examined the patient.
The LINK FABRIC MACHINE OPERATOR's note was reviewed and I agree with the note.
Comment:
79 year old male (formerly known to Dr. Mcmullen) with CAD (BMS proximal LCx 2009), ischemic cardiomyopathy EF 45%, dyslipidemia, COPD, VT, permanent atrial fibrillation, Medtronic BiV ICD, LBBB, NIDDM and hypertension, who presented to the
emergency department with a chief complaint of blocked Hurd catheter. Troponins were checked which resulted at 0.515 -> 0.315 for which cardiology was consulted. He denies chest pain. He does have stable shortness of breath with exertion. Labs
otherwise notable for lactate 3.1, WBC 32, creatinine 1.6. ECG with ventricular paced rhythm. Overall his elevated troponin is likely due to nonischemic myocardial injury in the setting of urosepsis and CHELSEA on CKD. Okay to stop trending troponins
as they have downtrended. No need for echocardiogram. Medical therapy for his ischemic cardiomyopathy has been limited by hypotension. We will continue to address as an outpatient. He should be continued on apixaban for permanent atrial
fibrillation.
Cardiology will sign off at this time. Please call with additional questions or concerns.
Original Note:
Consultation
Consultation Request
Date/Time Consultation Requested: 05/09/2024 14:30
Date/Time Consultation Performed: 05/09/2024 15:00
Requesting Provider: Dr. Tijerina
Performing Provider: DEEP Gaspar for Dr. Goodson
Reason for Consultation: Abnormal troponin
Medical History
-
Chief Complaint: Blocked Hurd catheter
History of Present Illness:
Parth Whitaker is an 79 year old male (formerly known to Dr. Mcmullen) with CAD (BMS proximal LCx 2009), ischemic cardiomyopathy EF 45%, dyslipidemia, COPD, VT, permanent atrial fibrillation, Medtronic BiV ICD, LBBB, NIDDM and hypertension, who
presented to the emergency department with a chief complaint of blocked Hurd catheter he believes it has been not draining well for at least 24 hours. He also endorsed shortness of breath. A troponin was checked. It was found to be abnormal.
Initial troponin 0.515, follow-up troponin 0.315. He was also found to have leukocytosis and lactic acidosis. His CHELSEA is likely related to his blocked Hurd catheter. He is having no chest pain.
In August, he received ICD therapy x 21. He was transitioned to hospice at that time. He is no longer on hospice.
Past Medical History
Past Medical History: Arrhythmias (VT, permanent atrial fibrillation), CAD (BMS to proximal circumflex stenosis 04/16/2009), CHF (ICM), COPD, HTN and Hypercholesterolemia
Social History
Tobacco: Former Smoker
Alcohol: Occasional
Drug: None
Personal:
Living: With Family
Employment: Retired
Family History
Family History: Reviewed & Not Pertinent
Allergies / Home Medications
Allergy/AdvReac Type Severity Reaction Status Date / Time
No Known Drug Allergies Allergy Unknown Verified 03/30/24 17:13
�Medication �Instructions �Recorded �Confirmed �Type
melatonin 5 mg tablet 5 mg PO HS PRN sleep 09/06/23 05/09/24 History
diphenhydramine HCl 25 mg tablet 50 mg PO QPMPRN PRN sleep 12/27/23 05/09/24 History
finasteride 5 mg tablet 5 mg PO DAILY 12/27/23 05/09/24 History
furosemide 20 mg tablet 20 mg PO DAILY 12/27/23 05/09/24 History
ipratropium 0.5 mg-albuterol 3 mg 3 ml inhalation TIDPRN PRN SOB 12/27/23 05/09/24 History
(2.5 mg base)/3 mL nebulization
soln
pantoprazole 40 mg tablet,delayed 40 mg PO DAILY 12/27/23 05/09/24 History
release
acetaminophen 500 mg tablet 1,000 mg PO Q6HPRN PRN mild pain 05/09/24 05/09/24 History
albuterol sulfate 90 mcg/actuation 1 inh inhalation Q6HPRN PRN sob 05/09/24 05/09/24 History
aerosol inhaler
apixaban 5 mg tablet 5 mg PO BID 05/09/24 05/09/24 History
fluticasone fur. 100 mcg-umeclid 1 inh inhalation DAILY 05/09/24 05/09/24 History
62.5 mcg-vilant 25 mcg
inhalat.powder (Trelegy Ellipta)
nitrofurantoin macrocrystal 50 mg 50 mg PO DAILY 05/09/24 05/09/24 History
capsule
tamsulosin 0.4 mg capsule 0.4 mg PO DAILY 05/09/24 05/09/24 History
Review of Systems
-
History Source: Patient
All other systems: Negative unless noted
Constitutional: Fatigue
EENT: No Symptoms
Respiratory: No Symptoms
Cardiac: No Symptoms
: Urgency
Musculoskeletal: No Symptoms
Skin: No Symptoms
Neurological: Weakness
Endocrine: No Symptoms
Hematologic/Lymphatic: No Symptoms
Physical Exam
Vital Signs
Temp Pulse Resp BP Pulse Ox
97.6 F 67 16 101/66 98
05/09/24 14:00 05/09/24 14:00 05/09/24 14:00 05/09/24 14:00 05/09/24 14:00
Lab Results
05/09/24 09:56
05/09/24 09:56
Troponin I 0.515 ng/ml H* 05/09/24 09:56
Zci-R-Whkxnjscrzl Pept 6680 pg/ml 05/09/24 09:56
Physical Exam
General: Well Developed, Well Nourished, No Apparent Distress and Comfortable
HEENT: Normocephalic, Anicteric and Moist Mucous Membranes
Respiratory: Wheezes and Non Labored Respirations
Cardiac: S1/S2 and Irregular Rhythm; Negative Peripheral Edema
Breast: Deferred by me
GI: Soft, Non Tender, Non Distended and Normal Bowel Sounds
Rectal: Deferred by Provider
Genito-urinary: No Costovertebral Tender
Musculoskeletal: No Clubbing, No Cyanosis and No Edema
Skin: Warm and Dry
Neuro: AO x 3
Hematologic/Lymphatic: No Lymphadenopathy
Psych: Calm
Impression / Plan
-
IMPRESSION/PLAN: 79M with CAD (BMS proximal LCx 2009), ischemic cardiomyopathy EF 45%, dyslipidemia, COPD, VT, permanent atrial fibrillation, Medtronic BiV ICD, LBBB, NIDDM and hypertension, who presented to the emergency department with a chief
complaint of blocked Hurd catheter
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 Mcmullen, now following with Dr. Villa
Sepsis, in the setting of UTI
-Leukocytosis with lactic acidosis and CHELSEA
COPD, per primary
Abnormal troponin, nonischemic myocardial injury in the setting of acute illness
-Chest pain-free
-Chronic LBBB on EKG
-Echocardiogram in a.m.
ICM(EF 40-45%), chronic
-Medical therapy has been limited in the past due to blood pressure
-Trend daily weight, I/O
CAD
-Stable without chest pain
-BMS in 2009, on apixaban
-Continue medical management
CHELSEA in the setting of urinary obstruction & sepsis, per primary
Permanent atrial fibrillation
-Oral Anticoagulation: Apixaban 5 mg twice daily, he denies missed doses and abnormal
-[id number]: score at least 6 (Heart failure, HTN, age 75 or more, Diabetes Mellitus, Vascular disease)
Mild to moderate secondary mitral regurgitation
Ventricular tachycardia, no recent ICD therapy per patient
HTN, chronic and stable
[2024-05-09 15:49] LABS: Troponin I 0.315 ng/ml
--- NOTE | 2024-05-09 15:50 | EDRN ---
troponin trending down Dr. Tijerina notified
--- NOTE | 2024-05-09 15:50 | EDRN ---
awaiting for admission orders
--- NOTE | 2024-05-09 16:15 | EDRN ---
this RN called the receiving unit and notified them that paper report was going to be tubed up
[2024-05-09 16:16] LABS: Urine Albumin 3+ (Neg - Trace); Urine Bilirubin Negative (Negative); Urine Character Clear (Clear); Urine Color Yellow; Urine Glucose Negative (Negative); Urine Ketone Negative (Negative); Urine Leukocyte 3+ (Negative); Urine Nitrite Positive (Negative); Urine Occult Blood 4+ (Negative); Urine Specific Gravity 1.015 (<1.030); Urine Urobilinogen 1+ (Neg - 1+); Urine pH 6.5 (5.0-9.0)
[2024-05-09 16:21] LABS: Urine Squamous Cell 0-2 /LPF (Few)
[2024-05-09 16:22] LABS: Urine Bacteria Many (Negative); Urine Red Blood Cell >100 /HPF (0-2); Urine White Cell >100 /HPF (0-5)
[2024-05-09 16:26] LABS: Lactic Acid 3.1 mmol/L (0.7-2.0)
--- NOTE | 2024-05-09 16:27 | HPS.HSE ---
Addendum entered and electronically signed by Cecelia Tijerina MD 05/09/24 19:00:
I personally performed a history and physical exam of the patient and discussed management with the resident. I reviewed the resident's note and agree with the documented findings and plan of care HPI/CC.
GENERAL: well developed, well nourished, male in no apparent distress
HEENT: NC/AT--O2 on side of nose but pulse ox 97% essentially on room air
HEART: irreg irreg
LUNGS : crackles at bases bilaterally
ABDOM: soft, nontender, distended, tympanitic, + hyperactive bowel sounds
EXT: no cyanosis, clubbing, or edema
NEUROLOGIC: grossly intact
: chronic roldan with sediment--blood at tip of circumcised penis
Sepsis (POA by criteria) secondary to catheter associated UTI (chronic indwelling roldan)--roldan changed in ED--UA sent after--start zosyn--pt still c/o penile pain --consult urology--cont proscar/tamsulosin--was started on Nitrofurantoin by urology
abdominal distention--nontender but tympanitic suggesting bowel with distention/air--check abdominal x-ray--? ileus
CHELSEA on CKD stage 3a--pt relative hypotension plus sepsis likely causes--resolved with IVF--not shock per se--cont IVF--baseline creat 1.2--renal dose meds--if no improvement, consult renal
Shortness of breath secondary to COPD exacerbation--cont nebs/steroids--wean O2 to off as does not wear at home--CXR without sign findings
Nonischemic myocardial injury--due to sepsis--troponin 0.5 down to 0.3--apprec cards--nothing further to do
Permanent atrial fibrillation--cont eliquis and meds as able
GERD--Continue pantoprazole
CODE STATUS-- DNR
DVT Proph-- Apixaban
Original Note:
Family Physician
-
Family Physician: Grayson Lyons
Chief Complaint
-
Blocked Roldan and shortness of breath
History of Present Illness
The patient is an 79-year-old male who presented to the emergency department with a blocked Roldan catheter. The patient has a past medical history of atrial fibrillation, CAD, CHF, COPD, MO. He also has a past surgical history of ICD implantation
and hernia repair. Patient was unaware of what type of hernia repair he underwent. He was unable to urinate since the night prior to his presentation. He stated that the pain started 2 days prior to his presentation. He was uncertain when he
noticed but he did notice that his Roldan collection bag was filling slower than usual. The night prior to his presentation to the emergency department his Roldan leaked and he urinated into his diaper. Patient is uncertain why he has a chronic
Roldan but believes he has had it for the last 2 years. He does not believe that he saw any blood in his urine or in his Roldan bag patient states that he has pain on movement and rates it a 7 out of 10. When he points to the area of his pain he
points to the tip of his penis where there is blood seen. Patient ambulates with a walker and avoid steps. In the emergency department the patient was hypotensive with a systolic blood pressure in the 90s. His respiratory rate was increased at
27. His white blood cell count was found to be 32 with a predominance of absolute neutrophils. Urinalysis was 4+ for occult blood, positive nitrite, 3+ leukocyte esterase, and white blood cells were seen along with many bacteria. The patient was
admitted to [facility] for sepsis secondary to UTI.
Medical History
Past Medical History
Past Medical History: Reports COPD, MO and Other
Additional Past Medical History:
Atrial fibrillation
Coronary artery
Congestive heart failure
COPD
Myocardial infarction
Past Surgical History: Reports Other
Additional Past Surgical History:
S/p ICD implantation
Hernia repair
Social History
Tobacco: Former Smoker (Smoked from the age [age])
Alcohol: Occasional ('Has a beer watching sports games from time to time')
Drug: None
Personal:
Living: With Family
Employment: Retired
Family History
Family History: Not pertinent
Allergies / Home Medications
Allergies reflects when Allergies were last updated in [employer].
Home Medications with original date entered in [employer]
Allergy/Medication List:
Allergies
Allergy/AdvReac Type Severity Reaction Status Date / Time
No Known Drug Allergies Allergy Unknown Verified 03/30/24 17:13
Home Medications
melatonin 5 mg tablet 5 mg PO HS PRN sleep 09/06/23
diphenhydramine HCl 25 mg tablet 50 mg PO QPMPRN PRN sleep 12/27/23
finasteride 5 mg tablet 5 mg PO DAILY 12/27/23
furosemide 20 mg tablet 20 mg PO DAILY 12/27/23
ipratropium 0.5 mg-albuterol 3 mg (2.5 mg base)/3 mL nebulization soln 3 ml inhalation TIDPRN PRN SOB 12/27/23
pantoprazole 40 mg tablet,delayed release 40 mg PO DAILY 12/27/23
acetaminophen 500 mg tablet 1,000 mg PO Q6HPRN PRN mild pain 05/09/24
albuterol sulfate 90 mcg/actuation aerosol inhaler 1 inh inhalation Q6HPRN PRN sob 05/09/24
apixaban 5 mg tablet 5 mg PO BID 05/09/24
fluticasone fur. 100 mcg-umeclid 62.5 mcg-vilant 25 mcg inhalat.powder (Trelegy Ellipta) 1 inh inhalation DAILY 05/09/24
nitrofurantoin macrocrystal 50 mg capsule 50 mg PO DAILY 05/09/24
tamsulosin 0.4 mg capsule 0.4 mg PO DAILY 05/09/24
Review of Systems
-
History Source: Patient
Constitutional: Reports No Symptoms
EENT: Reports No Symptoms
Respiratory: Reports Other (Shortness of breath)
Cardiac: Reports No Symptoms
Abdomen/GI: Reports No Symptoms
: Reports Other (Pain at the area of the penis and suprapubic)
Musculoskeletal: Reports No Symptoms
Skin: Reports No Symptoms
Neurological: Reports No Symptoms
Endocrine: Reports No Symptoms
Hematologic/Lymphatic: Reports No Symptoms
Psych: Reports Calm
Physical Exam
Vital Signs
Vital Signs
Temp Pulse Resp BP Pulse Ox
97.6 F 76 16 104/63 100
05/09/24 14:00 05/09/24 16:14 05/09/24 16:14 05/09/24 16:14 05/09/24 16:14
Physical Exam
General: Well Developed, Well Nourished and Comfortable
HEENT: NormoCephalic, Anicteric and Moist mucous membranes
Respiratory: Crackles (Bilaterally at the lung bases) and Decreased Breath Sounds (Bilaterally at the lung bases)
Cardiac: S1/S2; No Irregular Rhythm, Murmur or Rub
Breast: Deferred by me
GI: Soft, Non Tender, Non Distended and Normal Bowel Sounds
Rectal: Deferred by Provider
Genito-urinary: Turbid Urine and Roldan
Musculoskeletal: No Clubbing and No Cyanosis; No Clubbing
Skin: Warm and Dry; No Rash
Neuro: Awake, Alert, Oriented and AO x 3
Psych: Calm
Laboratory Results
-
05/09/24 09:56
05/09/24 09:56
Laboratory Results
Lactic Acid 3.1 mmol/L (0.7-2.0) H 05/09/24 16:08
Total Bilirubin 1.1 mg/dl (0.2-1.3) 05/09/24 09:56
AST 30 U/L (17-59) 05/09/24 09:56
ALT 20 U/L (0-50) 05/09/24 09:56
Alkaline Phosphatase 132 U/L (38-126) H 05/09/24 09:56
Troponin I 0.315 ng/ml H* D 05/09/24 15:11
Impression/Plan
-
Assessment/Plan:
-Sepsis secondary to UTI:
-Acute kidney injury on CKD stage IIIa:
In the emergency department the patient was hypotensive with a systolic blood pressure in the 90s. His respiratory rate was increased at 27. His white blood cell count was found to be 32 with a predominance of absolute neutrophils. Urinalysis
was 4+ for occult blood, positive nitrite, 3+ leukocyte esterase, and white blood cells were seen along with many bacteria.
Patient had an EGFR of 55.53 on 09/06/2023 -currently 43.02 on 05/09/2024 -we will continue to trend
Patient has a baseline creatinine of 1.2 as measured on 09/07/2023, on presentation to the emergency department on 05/09/2024 the patient had a creatinine of 1.6
Abdominal x-ray ordered
Urine culture pending
Blood culture pending
Change Roldan catheter
Renally dosed Zosyn given
-Shortness of breath secondary to COPD:
Patient has a history of COPD and he smoked for 40 years
DuoNebs and IV Decadron given
Chest x-ray was unremarkable
Patient was seen on 1.5 L nasal cannula oxygen but the cannula was not directly on the patient's nose and he had adequate saturation at 95%. We will wean down his 1.5 L oxygen and see if he easily tolerates this.
-Nonischemic cardiac injury:
Patient had elevated troponins at 0.515, and an elevated proBNP of 6680 in the emergency department
Troponins have trended downward and we will discontinue trending
Admitted to telemetry
Cardiology consulted -cardiology was under the impression that this was likely due to nonischemic myocardial injury in the setting of urosepsis and CHELSEA on CKD. Medical therapy for his ischemic cardiomyopathy has been limited by hypotension. They
recommend following as an outpatient.
-Permanent atrial fibrillation:
Admitted to telemetry
Continue apixaban 5 mg p.o. twice daily
-GERD:
Continue pantoprazole
CODE STATUS: DNR
Stress Ulcer Prophylaxis: Pantoprazole
DVT Prophylaxis: Apixaban
Imaging:
-Chest x-ray conducted on 05/09/2024:
FINDINGS:
Lines: Left chest wall pacemaker/defibrillator, unchanged from prior.
Lungs: The lungs are clear. No pleural effusion or pneumothorax. Mild atherosclerotic calcifications of the aortic arch.
Heart: Cardiac and mediastinal contours are unremarkable.
Osseous structures: No acute osseous abnormality. Mild degenerative changes of the thoracic spine.
IMPRESSION:
No acute cardiopulmonary abnormality.
--- NOTE | 2024-05-09 17:00 | CM ---
Patient seen in ED with physicians. Patient lives with in a 2 story home with a hospital bed and a wheelchair, walker and nebulizer. Patient sometimes sleeps in lounge chair. Patient stated that Patient is followed by PCP Dr. Lyons and
[facility]. Patient is not driving and family provides support. CM will continue to follow for discharge planning needs.
Plan; home with VN vs SNF pending medical assessments
[2024-05-09] MEDS: ZOSYN 50 IV (18:07)
[2024-05-09] MEDS: SYMBICORT 80/4.5 MCG INHALER 2 PUFF INH (19:56)
[2024-05-09 20:11] LABS: Lactic Acid 2.5 mmol/L (0.7-2.0)
[2024-05-09] MEDS: ELIQUIS 5 MG PO (21:25)
[2024-05-10] VITALS (19 sets, daily range): BP systolic 81–132; BP diastolic 43–78; PULSE 77–78; O2SAT 98–99; BMI 21.7
[2024-05-10] MEDS: ZOSYN 50 IV ×5 (00:02→23:07)
[2024-05-10 06:40] LABS: Lactic Acid 1.9 mmol/L (0.7-2.0)
--- NOTE | 2024-05-10 07:19 | W.PN.HOSP.TC ---
Addendum entered and electronically signed by Cecelia Tijerina MD 05/10/24 15:50:
I saw and evaluated the patient independently. I reviewed the resident�s note and agree with findings and plan as documented by Dr. Ding.
GENERAL: well developed, well nourished, male in no apparent distress
HEENT: NC/AT--O2 on side of nose but pulse ox 97% essentially on room air
HEART: irreg irreg
LUNGS : crackles at bases bilaterally
ABDOM: soft, nontender, distended, tympanitic, + hyperactive bowel sounds
EXT: no cyanosis, clubbing, or edema
NEUROLOGIC: grossly intact
: chronic roldan with sediment--blood at tip of circumcised penis
Sepsis (POA by criteria) secondary to catheter associated Proteus UTI (chronic indwelling roldan)--roldan changed in ED/UA sent after--cont zosyn--pt still c/o penile pain --await urology--cont proscar/tamsulosin--was started on Nitrofurantoin by
urology but likely not best med
abdominal distention--nontender but tympanitic suggesting bowel with distention/air--abdominal x-ray shows ileus--cont gentle bowel regimen and Gas X
CHELSEA on CKD stage 3a--pt relative hypotension plus sepsis likely causes--resolved with IVF--not shock per se--cont IVF--baseline creat 1.2--renal dose meds--if no improvement, consider renal--await urology
Shortness of breath secondary to COPD exacerbation--cont nebs/steroids--wean O2 to off as does not wear at home--CXR without sig findings
Nonischemic myocardial injury--due to sepsis--troponin 0.5 down to 0.3--apprec cards--nothing further to do
Permanent atrial fibrillation--cont eliquis and meds as able
GERD--Continue pantoprazole
CODE STATUS-- DNR
DVT Proph-- Apixaban
PT/OT
d/c planning--home health
Original Note:
Today's Communication/Plan
-
Urine culture was positive for Proteus species�covered by Zosyn which is currently being administered. Urology met with the patient and recommends that the patient's new Roldan remain. patient's oxygen was increased to 3 L but it was noticed that
the patient's nasal cannula was not even properly placed on the nose of the patient. Uncertain if patient actually needs 3 L oxygen nasal cannula. We will reattempt to wean this patient down and see if he can return back to his baseline.
Assessment / Plan
Assessment / Plan
Assessment/Plan:
-Sepsis secondary to CAUTI:
-Acute kidney injury on CKD stage IIIa:
-Obstructed Roldan Catheter:
In the emergency department the patient was hypotensive with a systolic blood pressure in the 90s. His respiratory rate was increased at 27. His white blood cell count was found to be 32 with a predominance of absolute neutrophils. Urinalysis
was 4+ for occult blood, positive nitrite, 3+ leukocyte esterase, and white blood cells were seen along with many bacteria.
Patient had an EGFR of 55.53 on 09/06/2023 -currently 43.02 on 05/09/2024 -we will continue to trend
Patient has a baseline creatinine of 1.2 as measured on 09/07/2023, on presentation to the emergency department on 05/09/2024 the patient had a creatinine of 1.6
On 05/10/2024 the patient's creatinine slightly decreased to 1.5�we will continue to trend
Abdominal x-ray conducted on 05/10/2024 - Some diffuse gaseous prominence of colon and small bowel favored to be on the basis of an ileus. -Patient given MiraLAX and simethicone -continue to monitor
Urine culture positive for Proteus -covered by Zosyn -will adjust if indicated by sensitivities
Blood culture pending
Changed Roldan catheter
Continue Proscar/tamsulosin
Patient was started on chronic nitrofurantoin therapy for recurrent UTIs by urology prior to this admission
Renally dosed Zosyn given
Appreciate urology recommendations -they recommend that the patient that the patient's Roldan catheter be changed if it has not already and they believed that the patient was suffering from a CAUTI from obstructed Roldan catheter.
Roldan collection bag with clear yellow urine on 05/10/2024�significant improvement compared to the turbid dark brownish yellow urine seen on admission
On admission and on 05/10/2024 red crusting blood was seen at the urethral meatus. This may be possibly due to trauma from Roldan insertion. Will continue to follow.
If no improvement consult nephrology
-Shortness of breath secondary to COPD:
Patient has a history of COPD and he smoked for 40 years
DuoNebs and IV Decadron given
Chest x-ray was unremarkable
Patient was seen on 1.5 L nasal cannula oxygen but the cannula was not directly on the patient's nose and he had adequate saturation at 95%. We will wean down his 1.5 L oxygen and see if he easily tolerates this.
-Nonischemic cardiac injury:
Patient had elevated troponins at 0.515, and an elevated proBNP of 6680 in the emergency department
Troponins have trended downward and we will discontinue trending
Admitted to telemetry
Appreciate cardiology recommendations-cardiology was under the impression that this was likely due to nonischemic myocardial injury in the setting of urosepsis and CHELSEA on CKD. Medical therapy for his ischemic cardiomyopathy has been limited by
hypotension. They recommend following as an outpatient.
-Permanent atrial fibrillation:
Admitted to telemetry
Continue apixaban 5 mg p.o. twice daily
-GERD:
Continue pantoprazole
CODE STATUS: DNR
Stress Ulcer Prophylaxis: Pantoprazole
DVT Prophylaxis: Apixaban
Imaging:
-Chest x-ray conducted on 05/09/2024:
FINDINGS:
Lines: Left chest wall pacemaker/defibrillator, unchanged from prior.
Lungs: The lungs are clear. No pleural effusion or pneumothorax. Mild atherosclerotic calcifications of the aortic arch.
Heart: Cardiac and mediastinal contours are unremarkable.
Osseous structures: No acute osseous abnormality. Mild degenerative changes of the thoracic spine.
IMPRESSION:
No acute cardiopulmonary abnormality.
Anticipated Discharge: > 48 hours
Subjective/Interval History
-
Date of Service: May 10, 2024
Met with patient at the bedside. He was seen resting comfortably in bed and smiling. Friendly in conversation and in positive spirits. Asked me to speak to his and I did briefly update her on her 's hospital course.
Objective Data
-
Labs:
Labs
05/10/24 06:14
05/10/24 06:14
Vital Signs:
Vital Signs
Temp Pulse Resp BP Pulse Ox
98.2 F 73 16 101/59 100
05/10/24 03:05 05/10/24 03:05 05/10/24 03:05 05/10/24 03:05 05/10/24 03:05
I&O
05/09/24 05/10/24 05/11/24
06:59 06:59 06:59
Intake Total 1090 / 1090
Output Total 525 / 525
Balance 565 / 565
Review of Systems
-
History Source: Patient
Constitutional: Reports No Symptoms
EENT: Reports No Symptoms Reported
Respiratory: Reports No Symptoms
Cardiac: Reports No Symptoms
Abdomen/GI: Reports Abdominal Pain
Breast: Reports No Symptoms
Genitourinary: Reports Other (Pain at the urethral meatus)
Musculoskeletal: Reports No Symptoms
Skin: Reports No Symptoms
Neuro: Reports No Symptoms
Endocrine: Reports No Symptoms
Physical Exam
-
General: Well Developed, Well Nourished, No Apparent Distress and Comfortable
HEENT: Normocephalic, Atraumatic, Nose Appears Normal, Ears Appear Normal and Oxygen
Respiratory: Clear to Auscultation
Cardiac: S1/S2; Negative Murmur, Rub or JVD
GI: Soft, Nontender and Nondistended
Rectal: Deferred by Provider
Genito-urinary: Roldan and Other (Red crusty blood seen at the urethral meatus.)
Musculoskeletal: No Clubbing, No Cyanosis and No Edema
Skin: Warm and Dry; Negative Rash, Ulcers or Lesions
Neuro: Awake, Alert and Oriented
Psych: Calm
[2024-05-10 07:21] LABS: ALT (SGPT) 16 U/L (0-50); AST (SGOT) 22 U/L (17-59); Albumin 3.9 g/dl (3.5-5.0); Alkaline Phosphatase 99 U/L (38-126); Blood Urea Nitrogen 33 mg/dl (9-20); Calcium 8.7 mg/dl (8.4-10.2); Carbon Dioxide 24 mmol/L (22-30); Chloride 101 mmol/L (98-107); Estimated Creatinine Clearance 35 ml/min; Glucose 119 mg/dl (70-99); Hematocrit 29.9 % (39.0-52.0); Magnesium 2.1 mg/dl (1.6-2.3); Mean Corp Hgb Conc. 30.1 g/dL (33.0-37.0); Mean Corpuscular Hgb 21.2 pg (27.0-31.0); Mean Corpuscular Volume 70.5 fL (80.0-94.0); Phosphorus 3.3 mg/dl (2.5-4.5); Platelet Count 162 10^3/uL (130-400); Potassium 4.8 mmol/L (3.5-5.1); Red Blood Cell Count 4.24 10^6/uL (4.70-6.10); Red Cell Dist. Width 19.4 % (11.5-14.5); Sodium 138 mmol/L (135-145); Total Bilirubin 0.8 mg/dl (0.2-1.3); Total Protein 6.4 g/dl (6.3-8.2); White Blood Cell Count 14.8 10^3/uL (4.8-10.8); eGFR 46.48
[2024-05-10] MEDS: SPIRIVA RESPIMAT 2.5 MCG 2 PUFF INH (07:22)
[2024-05-10] MEDS: SYMBICORT 80/4.5 MCG INHALER 2 PUFF INH ×2 (07:22→20:05)
[2024-05-10] MEDS: MIRALAX 17 GRAMS PO (10:56)
[2024-05-10] MEDS: PROSCAR 5 MG PO (10:59)
[2024-05-10] MEDS: PROTONIX 40 MG PO (10:59)
[2024-05-10] MEDS: LASIX 20 MG PO (11:00)
[2024-05-10] MEDS: ELIQUIS 5 MG PO ×2 (11:00→20:04)
[2024-05-10] MEDS: FLOMAX 0.4 MG PO (11:00)
[2024-05-10] MEDS: MYLICON DROPS 20 MG PO ×4 (11:01→23:07)
--- NOTE | 2024-05-10 13:24 | CM ---
Patient seen at bedside. Patient plan is for home with VN. Therapy recommending home with VN; Patient does not have home O2 in place and would need home O2 assessments. CM will continue to follow for discharge planning needs.
Plan; home with VN; watch for home O2 needs
[2024-05-10 17:59] LABS: Glucose - Point of Care 108 mg/dl (70-99)
[2024-05-10] MEDS: DUONEB 3 ML INH (18:11)
--- NOTE | 2024-05-10 18:16 | W.PN.UPDATE ---
Update Note
Progress Note Update
Called to the bedside for respiratory distress at approximately 6:00PM. Patient using accessory muscles to breathe. EKG unremarkable, CXR showed no acute processes.
Toponins + CMP labs drawn, Ipratroprium/Albuterol given, IVF bolus given, Morphine sulfate 0.5mg given, added Decadron 4mg IV Q8h due to possible COPD exacerbation being the cause. Patient upgraded to the ICU for further monitoring.
and Son updated on hospital course via phonecall.
--- NOTE | 2024-05-10 18:27 | PTCARENOTE ---
Patient yelling out 'I can't breath!' Staff into assess, gasping for air, SaO2 ~85% on room air, diaphoretic, pale, using accessory muscles. Placed on NRB 15L. Rapid response called, see flowsheet in paper chart. Rapid team at bedside, orders to
transfer to ICU.
[2024-05-10 18:30] LABS: HCO3 16.8 mmol/L (21-28); PCO2 35 mmHg (35-48); PO2 237 mmHg (83-108); pH 7.29 (7.35-7.45)
[2024-05-10 18:40] LABS: % Basophils 0.2 % (0-2); % Eosinophils 0.1 % (0-6); % Immature Granulocytes 0.5 % (0-0.5); % Lymphocytes 10.1 % (20.5-51.1); % Monocytes 9.3 % (1.7-9.3); % Neutrophils 79.8 % (42.2-75.2); Absolute Immature Granulocytes 0.1 10^3/uL (0-0.05); Absolute Monocytes 1.8 10^3/uL (0.1-0.6); Absolute Neutrophils 15.7 10^3/uL (1.4-6.5); Hematocrit 33.8 % (39.0-52.0); Hemoglobin 10.3 g/dL (13.0-18.0); Mean Corp Hgb Conc. 30.5 g/dL (33.0-37.0); Mean Corpuscular Hgb 21.4 pg (27.0-31.0); Mean Corpuscular Volume 70.1 fL (80.0-94.0); Nucleated Red Blood Cells % 0 % (-); Platelet Count 190 10^3/uL (130-400); Red Blood Cell Count 4.82 10^6/uL (4.70-6.10); Red Cell Dist. Width 19.7 % (11.5-14.5); White Blood Cell Count 19.6 10^3/uL (4.8-10.8)
[2024-05-10 18:42] LABS: APTT 32.4 Sec (23.4-35.0); INR 1.24; PT 16.1 Sec (11.4-14.6)
[2024-05-10] MEDS: MORPHINE SULFATE 0.5 MG IV (18:43)
[2024-05-10 18:49] LABS: ALT (SGPT) 17 U/L (0-50); AST (SGOT) 29 U/L (17-59); Albumin 4.7 g/dl (3.5-5.0); Alkaline Phosphatase 102 U/L (38-126); Blood Urea Nitrogen 33 mg/dl (9-20); Carbon Dioxide 22 mmol/L (22-30); Chloride 100 mmol/L (98-107); Estimated Creatinine Clearance 35 ml/min; Glucose 97 mg/dl (70-99); Potassium 5.3 mmol/L (3.5-5.1); Sodium 135 mmol/L (135-145); Total Bilirubin 0.9 mg/dl (0.2-1.3); Total Protein 7.6 g/dl (6.3-8.2); eGFR 46.48
[2024-05-10 18:55] LABS: Troponin I 0.087 ng/ml
--- NOTE | 2024-05-10 19:19 | PTCARENOTE ---
Pt brought back to ICU 630P.
Placed on monitor, transitioned from NRB to NC 3 L.
Tolerating 02 therapy well, maintaining own airway w.o issues at this time.
Normotensive, normothermic.
Vesicular bilaterally, slight crackles at bases.
Normocephalic, anicteric, missing teeth.
All questions answered, plan of care explained, report given to oncoming REVENUE ENFORCEMENT AGENT.
[2024-05-10] MEDS: DECADRON 4 MG IV (20:04)
--- NOTE | 2024-05-10 21:10 | PTCARENOTE ---
AAOx3, following commands, denying pain. V-paced in the 80s, BP stable, normothermic. On 3 liters, 97%, lung sounds diminished throughout, expiratory wheeze present. Positive bowel sounds, abdomen soft, nontender. Chronic roldan, yellow urine.
Blanchable red on sacrum. PIVs patent, WNL. Bedside swallow done per BALE PILER, tolerated well. Call dorantes within reach.
[2024-05-11] VITALS (16 sets, daily range): BP systolic 100–149; BP diastolic 60–96; PULSE 73; O2SAT 96; BMI 21.5
--- NOTE | 2024-05-11 | PTCARENOTE ---
Patient assessment unchanged from previous, resting comfortably. Call dorantes within reach.
[2024-05-11] MEDS: DECADRON 4 MG IV ×2 (03:41→11:32)
[2024-05-11 04:13] LABS: Hematocrit 27.8 % (39.0-52.0); Hemoglobin 8.6 g/dL (13.0-18.0); Mean Corp Hgb Conc. 30.9 g/dL (33.0-37.0); Mean Corpuscular Hgb 21.2 pg (27.0-31.0); Mean Corpuscular Volume 68.6 fL (80.0-94.0); Mean Platelet Volume 11.4 fL (7.4-10.4); Platelet Count 175 10^3/uL (130-400); Red Blood Cell Count 4.05 10^6/uL (4.70-6.10); Red Cell Dist. Width 18.9 % (11.5-14.5); White Blood Cell Count 12.8 10^3/uL (4.8-10.8)
--- NOTE | 2024-05-11 04:18 | PTCARENOTE ---
Labs sent, patient resting comfortably. Otherwise patient assessment unchanged from previous, call dorantes within reach.
[2024-05-11 04:22] LABS: ALT (SGPT) 44 U/L (0-50); AST (SGOT) 36 U/L (17-59); Albumin 3.5 g/dl (3.5-5.0); Alkaline Phosphatase 91 U/L (38-126); Blood Urea Nitrogen 30 mg/dl (9-20); Calcium 8.3 mg/dl (8.4-10.2); Carbon Dioxide 24 mmol/L (22-30); Chloride 105 mmol/L (98-107); Estimated Creatinine Clearance 38 ml/min; Glucose 120 mg/dl (70-99); Phosphorus 3.3 mg/dl (2.5-4.5); Potassium 5.2 mmol/L (3.5-5.1); Sodium 136 mmol/L (135-145); Total Bilirubin 0.6 mg/dl (0.2-1.3); Total Protein 6.1 g/dl (6.3-8.2); eGFR 50.49
[2024-05-11] MEDS: ZOSYN 50 IV ×2 (05:24→11:31)
--- NOTE | 2024-05-11 07:15 | CON.MD ---
Consultation - Medical
-
79M w/ history of BPH and chronic urinary retention requiring indwelling Hurd catheter after medical deconditioning from hospitalization in 2023 - presents w/ cUTI.
Noted to have dark and foul-smelling urine at home w/ significant leakage around catheter tubing.
Brought to ED for evaluation.
H/o BPH on tamsulosin + finasteride combination therapy (finasteride started in late 2023).
WBC 32 on admission
Cr 1.6 (h/o CKD, baseline Cr ~1.2)
UA +nitrites/WBCs
UCx => Proteus
BCx x2 => NG x24 hrs
General: AAO x3, no acute distress
Pulm: on O2 NC
exam: clear yellow urine in catheter tubing
Proteus cUTI - on IV abx
CHELSEA on CKD - improving after catheter exchange
BPH with urinary retention - Hurd catheter draining well
- Continue IV antibiotics w/ transition to PO course
- Maintain Hurd catheter on discharge - will coordinate VN for home changes q4 weeks
- F/U with Dr. Jones for outpatient voiding trial in 2 mo
D/w patient.
D/w Hospitalist.
[2024-05-11] MEDS: LASIX 20 MG PO (07:19)
[2024-05-11] MEDS: PROTONIX 40 MG PO (07:19)
[2024-05-11] MEDS: FLOMAX 0.4 MG PO (07:19)
[2024-05-11] MEDS: PROSCAR 5 MG PO (07:19)
[2024-05-11] MEDS: ELIQUIS 5 MG PO ×2 (07:19→21:02)
[2024-05-11] MEDS: MIRALAX PO (07:21)
--- NOTE | 2024-05-11 07:30 | W.PN.HOSP.TC ---
Addendum entered and electronically signed by Cecelia Tijerina MD 05/11/24 16:54:
I saw and evaluated the patient independently. I reviewed the resident�s note and agree with findings and plan as documented by Dr. Ding.
GENERAL: well developed, well nourished, male in no apparent distress
HEENT: NC/AT--O2 on side of nose but pulse ox 97% essentially on room air
HEART: irreg irreg
LUNGS : faint wheezes bilaterally
ABDOM: soft, nontender, distended, tympanitic, + hyperactive bowel sounds
EXT: no cyanosis, clubbing, or edema
NEUROLOGIC: grossly intact
: chronic roldan with sediment--blood at tip of circumcised penis
Sepsis (POA by criteria) secondary to catheter associated Proteus UTI (chronic indwelling roldan)--roldan changed in ED/UA sent after--cont unasyn--pt still c/o penile pain --apprec urology--cont proscar/tamsulosin--was started on Nitrofurantoin by
urology but likely not best med
abdominal distention--nontender but tympanitic suggesting bowel with distention/air--abdominal x-ray shows ileus--cont gentle bowel regimen and Gas X
CHELSEA on CKD stage 3a--pt relative hypotension plus sepsis likely causes--resolved with IVF--not shock per se--stop IVF--baseline creat 1.2--renal dose meds--if no improvement, consider renal
Shortness of breath secondary to COPD exacerbation--cont nebs/steroids--wean O2 to off as does not wear at home--CXR without sig findings
Nonischemic myocardial injury--due to sepsis--troponin 0.5 down to 0.3--apprec cards--nothing further to do
Permanent atrial fibrillation--cont eliquis and meds as able
GERD--Continue pantoprazole
CODE STATUS-- DNR
DVT Proph-- Apixaban
PT/OT
d/c planning--home health
Original Note:
Today's Communication/Plan
-
Patient switched to ampicillin sodium/sulbactam sodium for Proteus. Patient downgraded to [facility] again from the ICU.
Assessment / Plan
Assessment / Plan
Assessment/Plan:
-Sepsis secondary to CAUTI:
-Acute kidney injury on CKD stage IIIa:
-Obstructed Roldan Catheter:
In the emergency department the patient was hypotensive with a systolic blood pressure in the 90s. His respiratory rate was increased at 27. His white blood cell count was found to be 32 with a predominance of absolute neutrophils. Urinalysis
was 4+ for occult blood, positive nitrite, 3+ leukocyte esterase, and white blood cells were seen along with many bacteria.
Patient had an EGFR of 55.53 on 09/06/2023 -currently 43.02 on 05/09/2024 -we will continue to trend
Patient has a baseline creatinine of 1.2 as measured on 09/07/2023, on presentation to the emergency department on 05/09/2024 the patient had a creatinine of 1.6
On 05/10/2024 the patient's creatinine slightly decreased to 1.5�we will continue to trend
Abdominal x-ray conducted on 05/10/2024 - Some diffuse gaseous prominence of colon and small bowel favored to be on the basis of an ileus. -Patient given MiraLAX and simethicone -continue to monitor
Urine culture positive for Proteus -covered by Zosyn -patient switched to Unasyn
Blood culture -no growth
Changed Roldan catheter
Continue Proscar/tamsulosin
Patient was started on chronic nitrofurantoin therapy for recurrent UTIs by urology prior to this admission
Appreciate urology recommendations -they recommend that the patient that the patient's Roldan catheter be changed if it has not already and they believed that the patient was suffering from a CAUTI from obstructed Roldan catheter.
Roldan collection bag with clear yellow urine on 05/10/2024�significant improvement compared to the turbid dark brownish yellow urine seen on admission
On admission and on 05/10/2024 red crusting blood was seen at the urethral meatus. This may be possibly due to trauma from Roldan insertion. Will continue to follow.
If no improvement consult nephrology
-Uncompensated metabolic acidosis with respiratory alkalosis secondary to COPD exacerbation:
At 6:00 PM on 05/11/2024 was called to the bedside due to the patient suffering from respiratory distress. Patient was using accessory muscles to breathe. EKG was unremarkable. CXR showed no acute processes. Troponins were drawn and continue to
trend downward. CMP and ABG taken. Calculated expected pH based on CMP and ABG is 7.42 and indicates uncompensated metabolic acidosis with respiratory alkalosis secondary to COPD exacerbation.
Patient was given IV Decadron, ipratropium/albuterol given, IV fluid bolus given, morphine sulfate 0.5 mg given
Patient was upgraded to the ICU for further monitoring.
Updated patient's and son over the phone�patient's stated that he has had numerous episodes similar to this while sitting in his chair at home. Usually these episodes subsided within 30 minutes.
Patient may need daily steroids to avoid further COPD exacerbation. Patient breathes like a Siloam puffer.
Currently O2sat at 95% on room air
Patient had acute respiratory distress on the evening of 05/10/2024 refer to update note from that evening. Patient was upgraded to the ICU before being stabilized and then returned to [facility] once stable.
-Shortness of breath secondary to COPD:
Patient has a history of COPD and he smoked for 40 years
DuoNebs and IV Decadron given
Chest x-ray was unremarkable
Patient was seen on 1.5 L nasal cannula oxygen but the cannula was not directly on the patient's nose and he had adequate saturation at 95%. We will wean down his 1.5 L oxygen and see if he easily tolerates this.
-Nonischemic cardiac injury:
Patient had elevated troponins at 0.515, and an elevated proBNP of 6680 in the emergency department
Troponins have trended downward and we will discontinue trending
Admitted to telemetry
Appreciate cardiology recommendations-cardiology was under the impression that this was likely due to nonischemic myocardial injury in the setting of urosepsis and CHELSEA on CKD. Medical therapy for his ischemic cardiomyopathy has been limited by
hypotension. They recommend following as an outpatient.
-Permanent atrial fibrillation:
Admitted to telemetry
Continue apixaban 5 mg p.o. twice daily
-GERD:
Continue pantoprazole
CODE STATUS: DNR
Stress Ulcer Prophylaxis: Pantoprazole
DVT Prophylaxis: Apixaban
Imaging:
-Chest x-ray conducted on 05/09/2024:
FINDINGS:
Lines: Left chest wall pacemaker/defibrillator, unchanged from prior.
Lungs: The lungs are clear. No pleural effusion or pneumothorax. Mild atherosclerotic calcifications of the aortic arch.
Heart: Cardiac and mediastinal contours are unremarkable.
Osseous structures: No acute osseous abnormality. Mild degenerative changes of the thoracic spine.
IMPRESSION:
No acute cardiopulmonary abnormality.
Anticipated Discharge: > 48 hours
Subjective/Interval History
-
Date of Service: May 11, 2024
Met with the patient at the bedside. He is in positive spirits and apologetic because he believes that he gave hospital staff a hassle last night during his rapid response. Encouragement given and explained to the patient that it is our job and
pleasure to help him in any way possible.
Objective Data
-
Labs:
Laboratory Results
05/11/24
03:40
WBC 12.8 H
Hgb 8.6 L
Hct 27.8 L
Plt Count 175
Sodium 136
Potassium 5.2 H
Chloride 105
Carbon Dioxide 24
BUN 30 H
Creatinine 1.4 H
Glucose 120 H
Calcium 8.3 L
Total Bilirubin 0.6
AST 36
ALT 44
Alkaline Phosphatase 91
Vital Signs:
Vital Signs
Temp Pulse Resp BP Pulse Ox
97.7 F 85 18 113/69 95
05/11/24 07:28 05/11/24 07:42 05/11/24 07:42 05/11/24 03:00 05/11/24 07:42
I&O
05/10/24 05/11/24 05/12/24
06:59 06:59 06:59
Intake Total 1090 / 1090 770 / 770
Output Total 525 / 525 1750 / 1750
Balance 565 / 565 -980 / -980
Review of Systems
-
History Source: Patient
Constitutional: Reports No Symptoms
EENT: Reports No Symptoms Reported
Respiratory: Reports No Symptoms
Cardiac: Reports No Symptoms
Abdomen/GI: Reports No Symptoms
Breast: Reports No Symptoms
Genitourinary: Reports No Symptoms
Musculoskeletal: Reports No Symptoms
Skin: Reports No Symptoms
Neuro: Reports No Symptoms
Endocrine: Reports No Symptoms
Hematologic / Lymphatic: Reports No Symptoms
Physical Exam
-
General: Well Developed, Well Nourished, No Apparent Distress and Comfortable
HEENT: Normocephalic, Atraumatic and Moist Mucous Membranes
Respiratory: Wheezes (Bilaterally but more prominently heard in the left lung base) and Decreased Breath Sounds (Decreased lung sounds bilaterally in the lung bases)
Cardiac: S1/S2; Negative Murmur, Rub or JVD
Breast: Deferred by me
GI: Soft, Nontender, Nondistended and Normal Bowel Sounds
Rectal: Deferred by Provider
Genito-urinary: Roldan (Yellow urine seen in Roldan collection bag)
Musculoskeletal: No Clubbing, No Cyanosis and No Edema
Skin: Warm and Dry; Negative Rash or Ulcers
Neuro: Awake, Alert, Oriented and AO x 3
Psych: Calm
[2024-05-11] MEDS: SPIRIVA RESPIMAT 2.5 MCG 2 PUFF INH (07:37)
[2024-05-11] MEDS: SYMBICORT 80/4.5 MCG INHALER 2 PUFF INH ×2 (07:37→19:56)
[2024-05-11] MEDS: MYLICON DROPS 20 MG PO ×4 (08:01→21:02)
--- NOTE | 2024-05-11 08:23 | PTCARENOTE ---
Assumed care of pt. AAOx3 but forgetful, following commands, denying pain. V-paced in the 80s, BP stable, normothermic. On RA, SpO2 94%, lung sounds expiratory wheezes present. Positive bowel sounds, abdomen soft, nontender. Chronic roldan, yellow
urine. Blanchable red on sacrum. PIVs patent, WNL. Tolerated breakfast without issue. Call dorantes within reach.
--- NOTE | 2024-05-11 14:09 | PTCARENOTE ---
Report given to Reva on 4W. Pt transported to [facility] without issue. notified of room change.
--- NOTE | 2024-05-11 14:30 | PTCARENOTE ---
Pt transferred from ICU. VS stable. Pt oriented to surroundings with call dorantes in reach.
--- NOTE | 2024-05-11 16:19 | CON.PUL ---
Addendum entered and electronically signed by Eulalio Johns MD 05/12/24 16:02:
Agree with discharge planning.
Original Note:
Consultation
Consultation Request
Date/Time Consultation Requested: 05/11/2024
Date/Time Consultation Performed: 05/11/2024
Requesting Provider: Dr. Tijerina
Performing Provider: Dr. Eulalio Gatica
Reason for Consultation: Acute exacerbation of COPD
Medical History
-
History of Present Illness:
79-year-old male who presented to the emergency room with a blocked Hurd catheter. He has history of atrial fibrillation, coronary artery disease, CHF, COPD, myocardial infarction in the past. He has an ICD in place. Chronic shortness of breath
ambulates with a walker. Tries to avoid the steps.
-
In the emergency room found to be hypotensive. Had leukocytosis. UA suggestive of urinary tract infection. He was admitted to treat UTI with antibiotics.
Also complaining of shortness of breath. Found to be in possible acute exacerbation of COPD started on IV corticosteroids. His chest x-ray showed no acute infiltrate.
He was found to have mildly increased troponins with increased proBNP as well.
We were consulted for evaluation of his COPD exacerbation.
Past Medical History
Past Medical History: Other (See assessment and plan)
Social History
Tobacco: Former Smoker (Smoked from age 13 to age 53.)
Alcohol: Occasional
Drug: None
Personal:
Living: With Family
Employment: Retired
Family History
Family History: Reviewed & Not Pertinent
Allergies / Home Medications
Allergies
Allergy/AdvReac Type Severity Reaction Status Date / Time
No Known Drug Allergies Allergy Unknown Verified 03/30/24 17:13
Home Medications
�Medication �Instructions �Recorded �Confirmed �Last Taken �Type
melatonin 5 mg tablet 5 mg PO HS PRN sleep 09/06/23 05/09/24 05/08/24 History
diphenhydramine HCl 25 mg tablet 50 mg PO QPMPRN PRN sleep 12/27/23 05/09/24 12/26/23 18:00 History
finasteride 5 mg tablet 5 mg PO DAILY Urinary Issue 12/27/23 05/09/24 05/09/24 History
furosemide 20 mg tablet 20 mg PO DAILY Fluid 12/27/23 05/09/24 05/09/24 History
Retention/Swelling
ipratropium 0.5 mg-albuterol 3 mg 3 ml inhalation TIDPRN PRN SOB 12/27/23 05/09/24 05/09/24 History
(2.5 mg base)/3 mL nebulization
soln
pantoprazole 40 mg tablet,delayed 40 mg PO DAILY Gastrointestinal 12/27/23 05/09/24 05/09/24 History
release Issue
acetaminophen 500 mg tablet 1,000 mg PO Q6HPRN PRN mild pain 05/09/24 05/09/24 Unknown History
albuterol sulfate 90 mcg/actuation 1 inh inhalation Q6HPRN PRN sob 05/09/24 05/09/24 Unknown History
aerosol inhaler
apixaban 5 mg tablet 5 mg PO BID Blood Clot 05/09/24 05/09/24 05/09/24 History
Prevention/Tx
fluticasone fur. 100 mcg-umeclid 1 inh inhalation DAILY 05/09/24 05/09/24 05/08/24 History
62.5 mcg-vilant 25 mcg Lung/Breathing Issues
inhalat.powder (Trelegy Ellipta)
nitrofurantoin macrocrystal 50 mg 50 mg PO DAILY infection 05/09/24 05/09/24 05/09/24 History
capsule prophy/CAUTI
tamsulosin 0.4 mg capsule 0.4 mg PO DAILY Urinary Issue 05/09/24 05/09/24 05/09/24 History
Review of Systems
-
History Source: Patient
All other systems: Negative unless noted
Vitals / Labs / Diagnostic Testing
Vital Signs
Temp Pulse Resp BP Pulse Ox
97.8 F 73 16 123/73 96
05/11/24 14:18 05/11/24 14:18 05/11/24 14:18 05/11/24 14:18 05/11/24 14:18
Lab Data
05/11/24 03:40
05/11/24 03:40
Laboratory Results
05/10/24
18:20
PT 16.1 H
INR 1.24
APTT 32.4
pH 7.29 L
pCO2 35
pO2 237 H
HCO3 16.8 L
O2 Delivery Level Not Reportable
Microbiology
05/09/24 16:08 Blood/Venous Blood Culture - Preliminary
No Growth in 48 hours- Final report to follow
05/09/24 16:08 Blood/Venous Blood Culture - Preliminary
No Growth in 48 hours- Final report to follow
05/09/24 16:08 Urine Urine Culture - Final
Proteus mirabilis
05/09/24 09:56 Nasal Swab Influenza Types A & B (ARBEN) - Final
Negative for Influenza A & B, NAAT
Negative results must be combined with clinical observations
and patient history.
Nucleic Acid Amplification test (NAAT)performed on the
[employer] platform.
Diagnostic Testing:
Physical Exam
-
HEENT: Normocephalic
Respiratory: Clear and Non-Labored Respirations
GI: Soft and Non Distended
Neurology: Awake, Alert, Oriented and No Motor Deficits
Skin: Warm
General: Comfortable
Assessment
-
79-year-old man with past medical history noted. Initially admitted with UTI. Developed acute shortness of breath on 05/10/2024. Being treated for acute exacerbation of COPD. It is noted that this patient has poor compliance with follow-up.
Follows up in our office. He has history of aspiration in the past as well.
Acute respiratory sufficiency-shortness of breath.
Chest x-ray: Reviewed, clear lungs. ICD in place
Acute exacerbation of COPD
Cannot rule out heart failure component as well: Elevated proBNP 6000.
Slightly increased troponin
Urosepsis-chronic indwelling Hurd.
Proteus urine culture culture 05/09/2024
Leukocytosis
-
Anemia -microcytic-contributes to patient's shortness of breath
Prior admission:
Atrial fibrillation on anticoagulation
ICD in place
Coronary artery disease and prior myocardial infarction
Heart failure with reduced ejection fraction
COPD-he was seen in our office after discharge follow-up on 03/29/2024 by [facility] [place]/Dr.Kathy Lainez
Patient has chronic hypoxemic respiratory failure has a portable oxygen concentrator. Poor compliant with it.
Lung function 11/2018: FEV1 39% of predicted, FEV1/FVC ratio 37%. Diffusion capacity 38%
On Trelegy
History of lung nodules
former smoker quit at age 53
History of chronic urinary retention with indwelling catheter
Assessment and plan:
Patient is back to his baseline. He he has chronic shortness of breath with activity. Not requiring oxygen supplementation. He does have oxygen at home that he uses on a as needed basis.
He states that he was doing well yesterday and symptoms started after he ate.
He has poor dentition and prior history of aspiration. Suspect he has an aspiration event.
He has had multiple events at home similar to these were symptoms eventually clear. Cannot rule out recurrent aspiration versus anxiety attacks.
-
Not bronchospastic on exam-discontinue IV corticosteroids
Continue inhalers-eventually return to his usual inhaler in the outpatient setting [facility].
Aspiration precautions
Consider speech evaluation-it is noted in prior records that patient had history of aspiration in the past.
-
Does have lung nodules and is important for him to follow-up. May need updated CT chest at some point.
-
With increased proBNP cannot rule out heart failure component. Diuresis at your discretion.
-
Daughter was at the bedside and was updated by Dr. Gatica.
-
Will follow
-
Eventual outpatient follow-up in our office with Dr. Fatou Rubalcava or Karrie ADAME.
[2024-05-11] MEDS: UNASYN IV (18:40)
[2024-05-11] MEDS: TYLENOL 1000 MG PO (22:51)
[2024-05-12] MEDS: UNASYN IV ×3 (00:05→12:35)
[2024-05-12 06:00] VITALS: BMI 21.8
[2024-05-12 07:02] LABS: Hematocrit 28.6 % (39.0-52.0); Hemoglobin 8.8 g/dL (13.0-18.0); Mean Corp Hgb Conc. 30.8 g/dL (33.0-37.0); Mean Corpuscular Hgb 21.3 pg (27.0-31.0); Mean Corpuscular Volume 69.1 fL (80.0-94.0); Mean Platelet Volume 11.6 fL (7.4-10.4); Platelet Count 208 10^3/uL (130-400); Red Blood Cell Count 4.14 10^6/uL (4.70-6.10); White Blood Cell Count 12.3 10^3/uL (4.8-10.8)
[2024-05-12 07:19] LABS: ALT (SGPT) 33 U/L (0-50); AST (SGOT) 22 U/L (17-59); Albumin 3.8 g/dl (3.5-5.0); Alkaline Phosphatase 92 U/L (38-126); Blood Urea Nitrogen 28 mg/dl (9-20); Calcium 8.6 mg/dl (8.4-10.2); Carbon Dioxide 25 mmol/L (22-30); Chloride 101 mmol/L (98-107); Estimated Creatinine Clearance 38 ml/min; Glucose 97 mg/dl (70-99); Phosphorus 2.9 mg/dl (2.5-4.5); Potassium 4.4 mmol/L (3.5-5.1); Sodium 136 mmol/L (135-145); Total Bilirubin 0.8 mg/dl (0.2-1.3); Total Protein 6.2 g/dl (6.3-8.2); eGFR 50.49
[2024-05-12 07:20] VITALS: BP 118/68
--- NOTE | 2024-05-12 08:30 | PTOTSP ---
Speech Language Pathology
Pt seen for clinical bedside swallow evaluation. Previous VSE completed 11/28/21 secondary to choking episode noted with sandwich by staff. Supraglottic penetration x1 with no aspiration. Recommendations were for regular solids/thin liquids. Pt
also had GI workup in the past. EGD completed 07/12/22 with findings of small bowl angioectsias, reflux esophagitis, small hiatal hernia, gastritis, and multiple angioectasias duodenum, treated with argon plasma coagulation. GI recommended OP
capsule endoscopy. Pt and reported no GI follow up as outpatient.
This date, P.O. trials of regular solids and thin liquids provided. Adequate mastication, bolus formation, and A-P transit noted with no oral residue. No overt signs of aspiration. Given oropharyngeal swallow WFL on VSE in 2021 with known GI
concerns, question esophageal etiology fo complaints. Of note, pt reported similar SOB with physical activity at times, so episode may not have actually been related to eating/drinking.
Recommend:
(1) Regular solids/thin liquids
(2) Esophageal precautions
(3) Meds as tolerated
(4) COMPUTER SCIENTIST to sign off. Please reconsult as indicated
[2024-05-12] MEDS: SYMBICORT 80/4.5 MCG INHALER 2 PUFF INH (08:44)
[2024-05-12] MEDS: SPIRIVA RESPIMAT 2.5 MCG 2 PUFF INH (08:44)
[2024-05-12] MEDS: PROTONIX 40 MG PO (08:58)
[2024-05-12] MEDS: FLOMAX 0.4 MG PO (08:58)
[2024-05-12] MEDS: MYLICON DROPS 20 MG PO ×2 (08:59→12:37)
[2024-05-12] MEDS: PROSCAR 5 MG PO (09:02)
[2024-05-12] MEDS: MIRALAX 17 GRAMS PO (09:02)
[2024-05-12] MEDS: ELIQUIS 5 MG PO (09:02)
[2024-05-12] MEDS: LASIX 20 MG PO (09:03)
[2024-05-12 14:51] VITALS: BP 142/71
--- NOTE | 2024-05-12 14:54 | CM ---
Patient seen at bedside with physicians. Patient on speaker phone and plan is for patient to go home with referral to at home rehab for pt/ot at home. Patient completed IMM and plan is for patient to go home with family transport. CM will
continue to follow for discharge planning needs.
Plan; home with at home rehab referral for pt/ot
--- NOTE | 2024-05-12 15:15 | W.PN.HOSP.TC ---
Addendum entered and electronically signed by Anu Ding MD, Resident 05/12/24 18:10:
CLARIFICATION: Patient had acute respiratory distress secondary to COPD Exacerbation on the evening of 05/11/2024
Addendum entered and electronically signed by Cecelia Tijerina MD 05/12/24 17:57:
I saw and evaluated the patient independently. I reviewed the resident�s note and agree with findings and plan as documented by Dr. Ding.
GENERAL: well developed, well nourished, male in no apparent distress
HEENT: NC/AT--no O2 requirements
HEART: irreg irreg
LUNGS : faint wheezes bilaterally
ABDOM: soft, nontender, distended, tympanitic, + hyperactive bowel sounds
EXT: no cyanosis, clubbing, or edema
NEUROLOGIC: grossly intact
: chronic roldan
Sepsis (POA by criteria) secondary to catheter associated Proteus UTI (chronic indwelling roldan)--roldan changed in ED/UA sent after--cont unasyn--pt still c/o penile pain --apprec urology--cont proscar/tamsulosin--was started on Nitrofurantoin by
urology but likely not best med
acute respiratory failure--resolved--likely due to aspiration from esophageal dysmotility--outpt GI follow up
abdominal distention--nontender but tympanitic suggesting bowel with distention/air--abdominal x-ray shows ileus--cont gentle bowel regimen and Gas X
CHELSEA on CKD stage 3a--pt relative hypotension plus sepsis likely causes--resolved with IVF--not shock per se--stop IVF--creat likely new baseline
Shortness of breath secondary to COPD exacerbation--cont nebs/steroids--wean O2 to off as does not wear at home--CXR without sig findings
Nonischemic myocardial injury--due to sepsis--troponin 0.5 down to 0.3--apprec cards--nothing further to do
Permanent atrial fibrillation--cont eliquis and meds as able
anemia of chronic disease--no active bleeding noted
GERD--Continue pantoprazole
CODE STATUS-- DNR
DVT Proph-- Apixaban
OK for d/c
Original Note:
Today's Communication/Plan
-
Patient is medically stable and appropriate for discharge at the present time. We will discharge the patient on Keflex 500 mg every 8 hours for 10 days.
Assessment / Plan
Assessment / Plan
Assessment/Plan:
-Sepsis secondary to CAUTI:
-Acute kidney injury on CKD stage IIIa:
-Obstructed Roldan Catheter:
In the emergency department the patient was hypotensive with a systolic blood pressure in the 90s. His respiratory rate was increased at 27. His white blood cell count was found to be 32 with a predominance of absolute neutrophils. Urinalysis
was 4+ for occult blood, positive nitrite, 3+ leukocyte esterase, and white blood cells were seen along with many bacteria.
Patient had an EGFR of 55.53 on 09/06/2023 -currently 43.02 on 05/09/2024 -we will continue to trend
Patient has a baseline creatinine of 1.2 as measured on 09/07/2023, on presentation to the emergency department on 05/09/2024 the patient had a creatinine of 1.6
On 05/10/2024 the patient's creatinine slightly decreased to 1.5�we will continue to trend
Abdominal x-ray conducted on 05/10/2024 - Some diffuse gaseous prominence of colon and small bowel favored to be on the basis of an ileus. -Patient given MiraLAX and simethicone -continue to monitor
Urine culture positive for Proteus -covered by Zosyn -patient switched to Unasyn, -will be discharged on Keflex
Blood culture -no growth
Changed Roldan catheter
Continue Proscar/tamsulosin
Patient was started on chronic nitrofurantoin therapy for recurrent UTIs by urology prior to this admission
Appreciate urology recommendations -they recommend that the patient that the patient's Roldan catheter be changed if it has not already and they believed that the patient was suffering from a CAUTI from obstructed Roldan catheter.
Roldan collection bag with clear yellow urine on 05/10/2024�significant improvement compared to the turbid dark brownish yellow urine seen on admission
On admission and on 05/10/2024 red crusting blood was seen at the urethral meatus. This may be possibly due to trauma from Roldan insertion. Will continue to follow.
If no improvement consult nephrology
-Uncompensated metabolic acidosis with respiratory alkalosis secondary to COPD exacerbation:
At 6:00 PM on 05/11/2024 was called to the bedside due to the patient suffering from respiratory distress. Patient was using accessory muscles to breathe. EKG was unremarkable. CXR showed no acute processes. Troponins were drawn and continue to
trend downward. CMP and ABG taken. Calculated expected pH based on CMP and ABG is 7.42 and indicates uncompensated metabolic acidosis with respiratory alkalosis secondary to COPD exacerbation.
Patient was given IV Decadron, ipratropium/albuterol given, IV fluid bolus given, morphine sulfate 0.5 mg given
Patient was upgraded to the ICU for further monitoring.
Updated patient's and son over the phone�patient's stated that he has had numerous episodes similar to this while sitting in his chair at home. Usually these episodes subsided within 30 minutes.
Patient may need daily steroids to avoid further COPD exacerbation. Patient breathes like a [place] puffer.
Currently O2sat at 95% on room air
Patient had acute respiratory distress on the evening of 05/10/2024 refer to update note from that evening. Patient was upgraded to the ICU before being stabilized and then returned to [facility] once stable.
-Shortness of breath secondary to COPD:
Patient has a history of COPD and he smoked for 40 years
DuoNebs and IV Decadron given
Chest x-ray was unremarkable
Patient was seen on 1.5 L nasal cannula oxygen but the cannula was not directly on the patient's nose and he had adequate saturation at 95%. We will wean down his 1.5 L oxygen and see if he easily tolerates this.
-Nonischemic cardiac injury:
Patient had elevated troponins at 0.515, and an elevated proBNP of 6680 in the emergency department
Troponins have trended downward and we will discontinue trending
Admitted to telemetry
Appreciate cardiology recommendations-cardiology was under the impression that this was likely due to nonischemic myocardial injury in the setting of urosepsis and CHELSEA on CKD. Medical therapy for his ischemic cardiomyopathy has been limited by
hypotension. They recommend following as an outpatient.
-Permanent atrial fibrillation:
Admitted to telemetry
Continue apixaban 5 mg p.o. twice daily
-GERD:
Continue pantoprazole
CODE STATUS: DNR
Stress Ulcer Prophylaxis: Pantoprazole
DVT Prophylaxis: Apixaban
Imaging:
-Chest x-ray conducted on 05/09/2024:
FINDINGS:
Lines: Left chest wall pacemaker/defibrillator, unchanged from prior.
Lungs: The lungs are clear. No pleural effusion or pneumothorax. Mild atherosclerotic calcifications of the aortic arch.
Heart: Cardiac and mediastinal contours are unremarkable.
Osseous structures: No acute osseous abnormality. Mild degenerative changes of the thoracic spine.
IMPRESSION:
No acute cardiopulmonary abnormality.
Anticipated Discharge: Today
Subjective/Interval History
-
Date of Service: May 12, 2024
Met with the patient at the bedside. He is calm and pleasant in discussion. Immediately calls his to include her on his discussion with us. Mentions that the juice that he drank earlier for breakfast did not sit well with him.
Objective Data
-
Labs:
Laboratory Results
05/12/24
04:56
WBC 12.3 H
Hgb 8.8 L
Hct 28.6 L
Plt Count 208
Sodium 136
Potassium 4.4
Chloride 101
Carbon Dioxide 25
BUN 28 H
Creatinine 1.4 H
Glucose 97
Calcium 8.6
Total Bilirubin 0.8
AST 22
ALT 33
Alkaline Phosphatase 92
Vital Signs:
Vital Signs
Temp Pulse Resp BP Pulse Ox
97.5 F 76 18 142/71 96
05/12/24 14:51 05/12/24 14:51 05/12/24 14:51 05/12/24 14:51 05/12/24 14:51
I&O
05/11/24 05/12/24 05/13/24
06:59 06:59 06:59
Intake Total 770 / 770 980 / 980 460 / 460
Output Total 1750 / 1750 1865 / 1865 420 / 420
Balance -980 / -980 -885 / -885 40 / 40
Review of Systems
-
History Source: Patient
Constitutional: Reports No Symptoms
EENT: Reports No Symptoms Reported
Respiratory: Reports No Symptoms
Cardiac: Reports No Symptoms
Abdomen/GI: Reports No Symptoms
Breast: Reports No Symptoms
Genitourinary: Reports No Symptoms
Musculoskeletal: Reports No Symptoms
Skin: Reports No Symptoms
Allergy / Immunology: Reports No Symptoms
Physical Exam
-
General: Well Developed, Well Nourished and No Apparent Distress
HEENT: Normocephalic and Atraumatic
Respiratory: Clear to Auscultation and Decreased Breath Sounds (Bilaterally in the lung bases)
Cardiac: S1/S2; Negative Murmur or Rub
Breast: Deferred by me
GI: Soft, Nontender, Nondistended and Normal Bowel Sounds
Rectal: Deferred by Provider
Genito-urinary: Deferred by me
Musculoskeletal: No Clubbing, No Cyanosis and No Edema
Skin: Warm and Dry; Negative Rash or Ulcers
Neuro: Awake, Alert, Oriented and AO x 3
Psych: Calm
--- NOTE | 2024-05-12 16:40 | PN.CDI ---
CDI
- -
CDI:
Physician Documentation Request
Admit Date: 05/09/24 16:12
Dear Doctor Timur,
Please review the following and provide your response in the progress notes.
Clinical Indicators:
Progress Note Update, 05/10
#Called to the bedside for respiratory distress at approximately 6:00PM.
#...Patient using accessory muscles to breathe. EKG unremarkable,
#...CXR showed no acute processes.
#...Patient upgraded to the ICU for further monitoring.
05/10/24 18:27 - Patient Care Note
Patient yelling out 'I can't breath!' Staff into assess, gasping for air,
#...SaO2 ~85% on room air, diaphoretic, pale, using accessory muscles.
#...Placed on NRB 15L.
#...Rapid team at bedside, orders to transfer to ICU.
05/10/24 19:19 - Patient Care Note
#...Pt brought back to ICU 630P.
#...Placed on monitor, transitioned from NRB to NC 3 L.
PN, 05/12
#...At 6:00 PM on 05/11/2024 was called to the bedside
#...due to the patient suffering from respiratory distress.
#...Patient was using accessory muscles to breathe.
#...Patient was upgraded to the ICU for further monitoring.
#...Patient may need daily steroids to avoid further COPD exacerbation.
#...Patient breathes like a [place] puffer.
#Currently O2sat at 95% on room air
#Patient had acute respiratory distress on the evening of 05/10/2024
#...refer to update note from that evening.
#...Patient was upgraded to the ICU before being stabilized and
#...then returned to [facility] once stable.
Based on the above and your clinical assessment, please clarify which of the following accurately represents the patient's respiratory status:
Acute respiratory failure
Acute on chronic respiratory failure
Chronic respiratory failure
COPD exacerbation only
Hypoxia
Other(please specify)
Laboratory Tests
05/10/24
18:20
pH 7.29 L
pCO2 35
pO2 237 H
HCO3 16.8 L
Base Excess -9.0
ABG O2 Sat (Measured) 100.0 H
Additional information for Respiratory Failure:
Recognized criteria for Respiratory Failure (Source: [employer] Hospitalist Jan 2013)
ABGs: (1 or more) Symptoms Please indicate type if known
1. p)2 <60 or RA SPO2 <91% on RA 1. Tachypnea, SOB, dyspnea Hypoxic
2. pCO2 50 and pH <7.35 2. Use of accessory muscles Hypercapnic
3. pO2 decrease of pCO2 increase by 3. Pallor or cyanosis Hypoxic and Hypercapnic
10 mmHg from baseline if known 4. Anxiety or restlessness
5. Unable to speak in full sentences
Supplemental O2 of > 40% (5LPM) Intubation is not required
Use of terms such as suspected, likely, concern for, or probable (associated with a specific diagnosis that is being evaluated, monitored, or treated as if it exists) are acceptable and can be coded in the inpatient setting, when documented at the
time of discharge.
Thank you,
Cecelia Monroe RN BSN CCDS
CDI Specialist
please contact via tiger text
Please use your independent medical judgment in providing your response.
--- NOTE | 2024-05-12 18:19 | W.DCSUMMARY ---
Addendum entered and electronically signed by Cecelia Tijerina MD 05/12/24 19:24:
Read, reviewed, and agree. See same day progress note for additional details. Time spent coordinating care, DC planning, review of DC plan of care with resident, transition of care, review of records in EMR, med rec, consults, notes, d/w
consultants, nursing, family, and CM = 33 minutes
Original Note:
Discharge Summary
Discharge Data
Date of Admission: 05/09/24
Date of Discharge: 05/12/24
-
Pending Results: No
Hospital Course
Discharging Physician : Cecelia Tijerina MD
Disposition : Home with home care
Primary care physician : Grayson Lyons
Principal Discharge diagnosis : Sepsis secondary to CAUTI
Chronic Discharge diagnosis :
Atrial fibrillation
Coronary artery
Congestive heart failure
COPD
Myocardial infarction
Hospital Course : The patient is an 79-year-old male who presented to the emergency department with a blocked Hurd catheter. The patient has a past medical history of atrial fibrillation, CAD, CHF, COPD, [place]. He also has a past surgical history
of ICD implantation and hernia repair. Patient was unaware of what type of hernia repair he underwent. He was unable to urinate since the night prior to his presentation. He stated that the pain started 2 days prior to his presentation. He was
uncertain when he noticed but he did notice that his Hurd collection bag was filling slower than usual. The night prior to his presentation to the emergency department his Hurd leaked and he urinated into his diaper. Patient is uncertain why he
has a chronic Hurd but believes he has had it for the last 2 years. He does not believe that he saw any blood in his urine or in his Hurd bag patient states that he has pain on movement and rates it a 7 out of 10. Hurd bag in the emergency
department had dark brownish-yellow turbid urine. When he points to the area of his pain he points to the tip of his penis where there is blood seen. Patient ambulates with a walker and avoid steps. In the emergency department the patient was
hypotensive with a systolic blood pressure in the 90s. His respiratory rate was increased at 27. His white blood cell count was found to be 32 with a predominance of absolute neutrophils. Urinalysis was 4+ for occult blood, positive nitrite, 3+
leukocyte esterase, and white blood cells were seen along with many bacteria. The patient was admitted to [facility] for sepsis secondary to UTI.
The patient's Hurd was changed and the patient was evaluated by urology. Urology recommended continuing the chronic Hurd and to maintain proper hygiene and changing intervals. The patient was given nebulizers and steroids due to COPD
exacerbation. He required 1.5 L oxygen nasal cannula but was weaned down back to room air. Chest x-ray conducted on 05/09/24 was unremarkable. Troponins were elevated at 0.515 and the patient had an elevated proBNP at 6680 in the emergency
department the troponins trended downwards from that point during the admission and these values indicated nonischemic cardiac injury secondary to sepsis. Patient was continued on his Eliquis for permanent atrial fibrillation. Pantoprazole was
given for ongoing GERD. Urine culture was positive for Proteus and renally dosed Zosyn was given. After changing the Hurd and antibiotic administration the patient's urine returned to a normal yellow color with no cloudiness. After initiation of
antibiotics the patient's white blood cell count steadily trended downwards. The patient had an episode of respiratory distress on 05/10/2024 where the patient was seen using accessory muscles to breathe and EKG and chest x-ray taken at the bedside
were unremarkable. Troponin and CMP labs were unremarkable. Pulmonology was consulted and by their assessment they were under the impression that his respiratory symptoms correlated with food consumption it was noted that the patient started to
have shortness of breath shortly after finishing his food. He has poor dentition and a prior history of aspiration. Speech and swallow met with the patient and recommended that the patient have normal foods with thin liquids. They also
recommended that the patient follow-up with gastroenterology in the outpatient setting in order to have an endoscopy or PillCam swallow test done. There is suspicion for possible esophageal reflux causing aspiration and this needs to be better
investigated in the outpatient setting. The patient believes that he is ready for discharge and would like to go home.
The patient has reached maximal benefit from this hospital admission and the patient is appropriate for discharge at the present time. There are no barriers that would impede the patient from being discharged from the hospital at the present time.
The patient should follow-up with their primary care provider within 1 week following discharge. The patient should follow-up with gastroenterology within 2 weeks following discharge. The patient should follow-up with pulmonology within 2 weeks
following discharge. The patient should continue to take his Keflex 500 mg every 8 hours for the next 10 days and discontinue nitrofurantoin as there was no benefit to this treatment as bacteria were completely resistant to that antibiotic.
Important imaging findings :
-Chest x-ray conducted on 05/09/2024:
FINDINGS:
Lines: Left chest wall pacemaker/defibrillator, unchanged from prior.
Lungs: The lungs are clear. No pleural effusion or pneumothorax. Mild atherosclerotic calcifications of the aortic arch.
Heart: Cardiac and mediastinal contours are unremarkable.
Osseous structures: No acute osseous abnormality. Mild degenerative changes of the thoracic spine.
IMPRESSION:
No acute cardiopulmonary abnormality.
-Abdominal x-ray conducted on 05/09/2024:
FINDINGS/IMPRESSION:
Some diffuse gaseous prominence of colon and small bowel favored to be on the basis of an ileus. Radiographic appearance is not considered highly suspicious for a bowel obstruction. No appreciable intraperitoneal free air. No abnormal soft tissue
calcifications.
The imaged lungs are clear.
Left cardiac conduction device with leads in the right atrium, right ventricle, and coronary sinus.
-Chest x-ray conducted on 05/10/2024:
FINDINGS:
Left cardiac conduction device with leads in the right atrium, right ventricle, and coronary sinus. No focal consolidation, pleural effusion, or pneumothorax. The cardiomediastinal silhouette is normal. Chronic degenerative changes of the spine.
IMPRESSION:
No acute cardiopulmonary process.
Procedure findings : N/A
Discharge Plan
-
Patient Disposition: Home with Home Care
Discharge Diagnosis/Procedures: Sepsis secondary to CAUTI
Condition: Good
Diet: No restrictions and Other diet
Additional Diets: Normal food with thin liquids
Activity: No restrictions
Driving Restrictions: As prior to admission
Bathing Restrictions: None
Referrals:
Traci Velasquez MD [Active] - in one to two weeks (Suspected aspiration due to reflux from stomach)
Grayson Lyons MD [Family Provider] - in less than 1 week
Landon Perez MD [Active] - in less than 1 week
Prescriptions:
New
cephalexin 500 mg capsule
500 mg PO Q8H 10 Days Qty: 30 0RF
Continued
melatonin 5 mg Tablet
5 mg PO HS PRN (Reason: sleep)
ipratropium-albuterol 0.5 mg-3 mg(2.5 mg base)/3 mL Solution For Nebulization
3 ml INHALATION TIDPRN PRN (Reason: SOB)
pantoprazole 40 mg Tablet,Delayed Release (Dr/Ec)
40 mg PO DAILY
diphenhydramine HCl 25 mg Tablet
50 mg PO QPMPRN PRN (Reason: sleep)
finasteride 5 mg Tablet
5 mg PO DAILY
furosemide 20 mg Tablet
20 mg PO DAILY
Trelegy Ellipta 100-62.5-25 mcg Blister With Device
1 inh INHALATION DAILY
nitrofurantoin macrocrystal 50 mg Capsule
50 mg PO DAILY
albuterol sulfate 90 mcg/actuation Hfa Aerosol Inhaler
1 inh INHALATION Q6HPRN PRN (Reason: sob)
apixaban 5 mg Tablet
5 mg PO BID
acetaminophen 500 mg Tablet
1,000 mg PO Q6HPRN PRN (Reason: mild pain)
tamsulosin 0.4 mg Capsule
0.4 mg PO DAILY
Discharge Orders:
Discharge Patient (As Directed); Ordered 05/12/24
Ordered By: Anu Ding
Discharge Date and Time
Discharge Date/Time: 05/12/24 17:33
Print Language: GABONESE
== END 2024-05-12 17:33 | disposition home health service (06) | DRG 698 ==
LOC: 4 WEST ACU 16:12
PROVIDERS: Nurse Practitioner Gerontology; Student in an Organized Health Care Education/Training Program; ADMITTING PHYSICIAN Internal Medicine; CONSULT PHYSICIAN Student in an Organized Health Care Education/Training Program; CONSULT PHYSICIAN Surgery; EMERGENCY PHYSICIAN Student in an Organized Health Care Education/Training Program; FAMILY PHYSICIAN Family Medicine; OTHER PHYSICIAN Internal Medicine Critical Care Medicine
DX: T83.518A Infection and inflammatory reaction due to other urinary catheter, initial encounter (principal); A41.9 Sepsis, unspecified organism; J96.00 Acute respiratory failure, unspecified whether with hypoxia or hypercapnia; N39.0 Urinary tract infection, site not specified; J44.1 Chronic obstructive pulmonary disease with (acute) exacerbation; J45.901 Unspecified asthma with (acute) exacerbation; N17.9 Acute kidney failure, unspecified; I5A Non-ischemic myocardial injury (non-traumatic); I48.21 Permanent atrial fibrillation; I13.0 Hypertensive heart and chronic kidney disease with heart failure and stage 1 through stage 4 chronic kidney disease, or unspecified chronic kidney disease; I50.22 Chronic systolic (congestive) heart failure; J96.11 Chronic respiratory failure with hypoxia; K56.7 Ileus, unspecified; E87.20 Acidosis, unspecified; I47.20 Ventricular tachycardia, unspecified; N18.31 Chronic kidney disease, stage 3a; Y84.6 Urinary catheterization as the cause of abnormal reaction of the patient, or of later complication, without mention of misadventure at the time of the procedure; E11.22 Type 2 diabetes mellitus with diabetic chronic kidney disease; I95.9 Hypotension, unspecified; K21.9 Gastro-esophageal reflux disease without esophagitis; Z66 Do not resuscitate; Z95.810 Presence of automatic (implantable) cardiac defibrillator; D50.9 Iron deficiency anemia, unspecified; Z79.01 Long term (current) use of anticoagulants; I25.10 Atherosclerotic heart disease of native coronary artery without angina pectoris; D63.1 Anemia in chronic kidney disease; I25.2 Old myocardial infarction; Z11.52 Encounter for screening for COVID-19; Z87.891 Personal history of nicotine dependence; I25.5 Ischemic cardiomyopathy; I34.0 Nonrheumatic mitral (valve) insufficiency; I44.7 Left bundle-branch block, unspecified; T83.091A Other mechanical complication of indwelling urethral catheter, initial encounter; Y73.8 Miscellaneous gastroenterology and urology devices associated with adverse incidents, not elsewhere classified; Z79.899 Other long term (current) drug therapy
CPT/HCPCS: 71045; 71046; 74019; 80053; 81003; 81015; 82805; 82962; 83605; 83735; 83880; 84100; 84484; 85025; 85027; 85610; 85730; 87040; 87086; 87088; 87186; 87502; 87811; 92610; 93005; 94640; 96374; 96375; 97162; 97166; 97530; 99285

== ENCOUNTER 2024-10-23 14:21 | Emergency (ER) | payer OTHER, SELFPAY ==
[2024-10-23 14:29] VITALS: BP 147/81
[2024-10-23 14:58] LABS: Hematocrit 46.3 % (39.0-52.0); Hemoglobin 15.1 g/dL (13.0-18.0); Mean Corp Hgb Conc. 32.6 g/dL (33.0-37.0); Mean Corpuscular Volume 88.7 fL (80.0-94.0); Nucleated Red Blood Cells % 0 % (-); Platelet Count 133 10^3/uL (130-400); Red Cell Dist. Width 14.6 % (11.5-14.5)
[2024-10-23 15:03] LABS: ALT (SGPT) 15 U/L (0-50); AST (SGOT) 22 U/L (17-59); Albumin 4.5 g/dl (3.5-5.0); Alkaline Phosphatase 82 U/L (38-126); Blood Urea Nitrogen 28 mg/dl (9-20); Calcium 9.5 mg/dl (8.4-10.2); Carbon Dioxide 28 mmol/L (22-30); Chloride 101 mmol/L (98-107); Glucose 102 mg/dl (70-99); Potassium 4.5 mmol/L (3.5-5.1); Sodium 137 mmol/L (135-145); Total Protein 7.4 g/dl (6.3-8.2); eGFR 46.48
--- NOTE | 2024-10-23 16:47 | ED.GENMED ---
ED Provider Triage
<Tamika Becker PA-C - Last Filed: 10/23/24 16:49>
-
Patient seen by provider in Triage?: Seen in Triage
Attestation: A medical screening examination has been initiated by a qualified medical provider. Based on the assessment performed at this time, it has been determined that an emergent medical condition may exist and the patient has been informed
that further medical evaluation and possible additional diagnostic testing may be needed.
HPI: [id number] sent in by urology office. Had cystoscopy and catheter at the office today with Dr. Jones. Sent in for hematuria. May need OR tonight for cystoscopy. Urology requesting STAT CT with IV contrast.
GENERAL: Alert , in no apparent distress
EYE: No visual abnormalities.
NECK: Trachea midline
ENT: No visible abnormalities.
LUNGS: No acute respiratory distress
NEUROLOGICAL: Alert and oriented
: Gross hematuria noted in Hurd bag.
SKIN: Skin intact. No visible changes.
MUSCULOSKELETAL: Moving extremities normally
PSYCH: Normal and appropriate interaction.
This is a medical evaluation conducted in person to initiate diagnostic evaluation and provide initial therapeutics. Please see further documentation by the treating clinician.
History of Present Illness
<Tamika Becker PA-C - Last Filed: 10/23/24 16:49>
General
Chief Complaint: Urinary Symptoms
Time Seen by Provider: 10/23/24 19:01
<Parth Pena MD - Last Filed: 10/23/24 21:09>
General
Source: patient, spouse and physician
Exam Limitations: none
History of Present Illness
History of Present Illness:
79-year-old male history of chronic Hurd catheter placement. Had a blocked Hurd over the weekend where he was urinating around the catheter. This morning he went to urologist office. Catheter was replaced in the office with a flexible scope and
exchange. Bladder looked fine at that time. had reported no drainage at home. Patient has been having episodes of bladder spasms since the replacement. No fever chills or other complaints.
Past History
<Tamika Becker PA-C - Last Filed: 10/23/24 16:49>
Past History
ED Past Medical History: Arrthythmia (Atrial fibrillation), CAD, CHF, COPD and IA
ED Past Surgical History: Cardiac (ICD implantation), Orthopedic (Cyst on left hand) and Other (Hernia repair)
Patient has exhibited threatening behavior?: No
PSI?: No
Social History
Tobacco: Former smoker
Alcohol: Occasional
Drug: None
Personal:
Living: with family
Employment: Retired
Family History
Family History: Other (Noncontributory )
Phy Exam
<Parth Pena MD - Last Filed: 10/23/24 21:09>
Physical Exam
Physical Exam:
GENERAL: Alert and oriented in no apparent distress
EYE: Orbits normal.
NECK: Supple
CARDIAC: Regular rate and rhythm without any obvious murmurs.
LUNGS: Clear breath sounds,normal
ABDOMEN: Soft, without focal tenderness or distention.
: Catheter in place. Dark hematuria in the bag with no clots. In the catheter tubing however it is more of a aron color. Appears to be functioning. Small amount of blood around the urethra
NEUROLOGICAL: Alert and oriented , grossly non-focal
SKIN: Warm and dry
PSYCH: Normal and appropriate interaction.
Course
<Tamika Becker PA-C - Last Filed: 10/23/24 16:49>
Orders/Labs/Results
Orders:
Orders
10/23/24 14:35
Complete Blood Count/With Diff Urgent
Comprehensive Metabolic Panel Urgent
10/23/24 16:52
Type+Screen Urgent
10/23/24 19:08
CT Abd/pelvis W/wo Iv Cont Urgent
Reason For Exam: Hematuria./Cystogram
10/23/24 20:00
UA Reflex to Culture [Urinalysis Reflex To Culture] Urgent
Date Specimen was Collected: 10/23/24
Time Specimen was Collected: 14:31
Urine Microscopic Reflex Cult Urgent
Urine Culture Urgent
JAMARI Source: U
Specimen Description:
Date Specimen was Collected: 10/23/24
Time Specimen was Collected: 14:
Abnormal Lab Results
10/23/24 10/23/24
14:35 20:00
WBC 15.5 H 10^3/uL
(4.8-10.8)
MCHC 32.6 L g/dL
(33.0-37.0)
RDW 14.6 H %
(11.5-14.5)
MPV 11.7 H fL
(7.4-10.4)
Abs Immat Gran (auto) 0.1 H 10^3/uL
(0-0.05)
Absolute Neuts (auto) 13.1 H 10^3/uL
(1.4-6.5)
Absolute Lymphs (auto) 0.7 L 10^3/uL
(1.2-3.4)
Absolute Monos (auto) 1.6 H 10^3/uL
(0.1-0.6)
Neutrophils % 84.7 H %
(42.2-75.2)
Lymphocytes % 4.2 L %
(20.5-51.1)
Monocytes % 10.4 H %
(1.7-9.3)
BUN 28 H mg/dl
(9-20)
Creatinine 1.5 H mg/dL
(0.7-1.3)
Glucose 102 H mg/dl
(70-99)
Urine Ketones 1+ A
(Negative)
Ur Occult Blood Reflex 4+ A
(Negative)
Urine Nitrite (Reflex) Positive A
(Negative)
Leukocyte Esterase Rfl 3+ A
(Negative)
Urine RBC >100 A /HPF
(0-2)
Urine WBC (Reflex) 70-80 A /HPF
(0-5)
Urine Bacteria (Reflex) Many A
(Negative)
Urine Albumin (Reflex) 4+ A
(Neg - Trace)
10/23/24 14:35
10/23/24 14:35
Vital Signs
Initial and Last Documented VS:
Initial Vital Signs
Temp Pulse Resp BP Pulse Ox
98 F 58 22 147/81 98
10/23/24 14:29 10/23/24 14:29 10/23/24 14:29 10/23/24 14:29 10/23/24 14:29
Last Documented Vital Signs
Temp Pulse Resp BP Pulse Ox
98 F 58 22 147/81 98
10/23/24 14:29 10/23/24 14:29 10/23/24 14:29 10/23/24 14:29 10/23/24 16:49
<Parth Pena MD - Last Filed: 10/23/24 21:09>
Orders/Labs/Results
Orders:
Orders
10/23/24 14:35
Complete Blood Count/With Diff Urgent
Comprehensive Metabolic Panel Urgent
10/23/24 16:52
Type+Screen Urgent
10/23/24 19:08
CT Abd/pelvis W/wo Iv Cont Urgent
Reason For Exam: Hematuria./Cystogram
10/23/24 20:00
UA Reflex to Culture [Urinalysis Reflex To Culture] Urgent
Date Specimen was Collected: 10/23/24
Time Specimen was Collected: 14:31
Urine Microscopic Reflex Cult Urgent
Urine Culture Urgent
JAMARI Source: U
Specimen Description:
Date Specimen was Collected: 10/23/24
Time Specimen was Collected: 14:31
Abnormal Lab Results
10/23/24 10/23/24
14:35 20:00
WBC 15.5 H 10^3/uL
(4.8-10.8)
MCHC 32.6 L g/dL
(33.0-37.0)
RDW 14.6 H %
(11.5-14.5)
MPV 11.7 H fL
(7.4-10.4)
Abs Immat Gran (auto) 0.1 H 10^3/uL
(0-0.05)
Absolute Neuts (auto) 13.1 H 10^3/uL
(1.4-6.5)
Absolute Lymphs (auto) 0.7 L 10^3/uL
(1.2-3.4)
Absolute Monos (auto) 1.6 H 10^3/uL
(0.1-0.6)
Neutrophils % 84.7 H %
(42.2-75.2)
Lymphocytes % 4.2 L %
(20.5-51.1)
Monocytes % 10.4 H %
(1.7-9.3)
BUN 28 H mg/dl
(9-20)
Creatinine 1.5 H mg/dL
(0.7-1.3)
Glucose 102 H mg/dl
(70-99)
Urine Ketones 1+ A
(Negative)
Ur Occult Blood Reflex 4+ A
(Negative)
Urine Nitrite (Reflex) Positive A
(Negative)
Leukocyte Esterase Rfl 3+ A
(Negative)
Urine RBC >100 A /HPF
(0-2)
Urine WBC (Reflex) 70-80 A /HPF
(0-5)
Urine Bacteria (Reflex) Many A
(Negative)
Urine Albumin (Reflex) 4+ A
(Neg - Trace)
10/23/24 14:35
10/23/24 14:35
Vital Signs
Initial and Last Documented VS:
Initial Vital Signs
Temp Pulse Resp BP Pulse Ox
98 F 58 22 147/81 98
10/23/24 14:29 10/23/24 14:29 10/23/24 14:29 10/23/24 14:29 10/23/24 14:29
Last Documented Vital Signs
Temp Pulse Resp BP Pulse Ox
98 F 58 22 147/81 98
10/23/24 14:29 10/23/24 14:29 10/23/24 14:29 10/23/24 14:29 10/23/24 16:49
<Parth Pena MD - Last Filed: 10/23/24 21:09>
MDM/Problems Addressed
Differential Diagnosis Includes:
Patient appears to have a functioning catheter at this time. I do not feel that it is obstructed. He does have a white count but no systemic symptoms. Discussed with urology. CT cystogram pending.
<Tamika Becker PA-C - Last Filed: 10/23/24 16:49>
*Pulse Oximetry
SaO2: 98
Oxygen Mode of Delivery: Room air
<Parth Pena MD - Last Filed: 10/23/24 21:09>
*Radiology
Radiology exam reviewed: radiology read reviewed (Bladder wall thickening small diverticuli Hurd catheter in place.)
*Pulse Oximetry
Patient hypoxic: no (98)
*Critical Care Note
Total Time (30-74mins, 75-104mins- exclusive of procedures): Not Applicable
Data Reviewed
Review of Other/Old Records Reveals: Labs, Records, Testing and Discharge Summary
<Parth Pena MD - Last Filed: 10/23/24 21:09>
Update Note
Update Note:
2104... Patient has remained nontoxic in no distress. Stable vital signs. No infectious symptoms. Catheter in place. Discussed with urology. He put the patient on sulfamethoxazole which he took earlier and will continue tonight. Catheter urine
is flowing well and is just slightly off clear. No significant hematuria
ED Attending Note
<Tamika Becker PA-C - Last Filed: 10/23/24 16:49>
-
Portions of this chart may have been created with voice recognition software.� Occasional wrong word or��sound alike� substitutions may have occurred due to the inherent limitations of voice recognition software.
Discharge Plan
Departure
Patient Disposition: Home (Routine Discharge)
Date of Disposition: 10/23/24
Time of Disposition: 21:07
Patient with high blood pressure during this ER visit?: Yes
Discharge Problem:
Hematuria, Recent catheter exchange, Anticoagulated
Instructions: How to Care for Your Hurd Catheter, Male, Blood in the urine (hematuria) - ED discharge instructions, BLOOD PRESSURE
Prescriptions:
No Action
melatonin 5 mg Tablet
5 mg PO HS PRN (Reason: sleep)
ipratropium-albuterol 0.5 mg-3 mg(2.5 mg base)/3 mL Solution For Nebulization
3 ml INHALATION TIDPRN PRN (Reason: SOB)
pantoprazole 40 mg Tablet,Delayed Release (Dr/Ec)
40 mg PO DAILY
diphenhydramine HCl 25 mg Tablet
50 mg PO QPMPRN PRN (Reason: sleep)
finasteride 5 mg Tablet
5 mg PO DAILY
furosemide 20 mg Tablet
20 mg PO DAILY
Trelegy Ellipta 100-62.5-25 mcg Blister With Device
1 inh INHALATION DAILY
nitrofurantoin macrocrystal 50 mg Capsule
50 mg PO DAILY
albuterol sulfate 90 mcg/actuation Hfa Aerosol Inhaler
1 inh INHALATION Q6HPRN PRN (Reason: sob)
apixaban 5 mg Tablet
5 mg PO BID
acetaminophen 500 mg Tablet
1,000 mg PO Q6HPRN PRN (Reason: mild pain)
tamsulosin 0.4 mg Capsule
0.4 mg PO DAILY
cephalexin 500 mg capsule
500 mg PO Q8H 10 Days Qty: 30 0RF
Referrals:
Grayson Lyons MD [Family Provider, Family Practice]
Activity Restrictions/Additional Instructions:
Continue antibiotics at home
Stay well-hydrated
Follow-up closely with urology
Return immediately with recurrent blocked Hurd fever chills or any other concerning symptoms
No Eliquis until morning
Interventions
Interventions:
*Risk Screen - Suicide Last Done: 10/23/24 14:29
*General Assessment Last Done: 10/23/24 14:29
*Neglect/Abuse Screening Last Done: 10/23/24 14:29
*ED- Fall Risk Assessment Last Done: 10/23/24 19:39
*ED COVID-19 Vaccine History Last Done: 10/23/24 19:39
SN-Fqadfe-Ygqqyvpjhz Assessment Last Done: 10/23/24 19:39
ED-Male Genitourinary Assessment Last Done: 10/23/24 19:39
Discharge Date and Time
Print Language: BERMUDIAN
[2024-10-23 19:39] VITALS: BMI 22.0
[2024-10-23 19:56] VITALS: BP 118/67
[2024-10-23 20:00] VITALS: BP 121/51
[2024-10-23 20:10] LABS: Urine Character Cloudy (Clear)
[2024-10-23 20:49] LABS: Urine Red Blood Cell >100 /HPF (0-2); Urine Squamous Cell 0-2 /LPF (Few)
[2024-10-23 20:50] LABS: Urine White Cell 70-80 /HPF (0-5)
[2024-10-23 21:00] VITALS: BP 65/54
[2024-10-23 21:14] VITALS: BP 108/72
[2024-10-23 21:17] VITALS: BP 116/65
== END 2024-10-23 22:00 | disposition home or self-care (01) ==
LOC: EMR 14:21
PROVIDERS: Student in an Organized Health Care Education/Training Program; EMERGENCY PHYSICIAN Emergency Medicine; FAMILY PHYSICIAN Family Medicine
DX: R31.0 Gross hematuria (principal); I25.10 Atherosclerotic heart disease of native coronary artery without angina pectoris; I48.91 Unspecified atrial fibrillation; I50.9 Heart failure, unspecified; J44.9 Chronic obstructive pulmonary disease, unspecified; I25.2 Old myocardial infarction; Z79.01 Long term (current) use of anticoagulants; Z87.891 Personal history of nicotine dependence
CPT/HCPCS: 99284; 74178; 80053; 81003; 81015; 85025; 86850; 86900; 86901; 87086; Q9967